=== PATIENT | female | born 1955 | race Caucasian/White ===

== ENCOUNTER 2021-02-24 05:36 | Inpatient (IN) | payer OTHER ==
[~2021-02-24] VITALS: Ht 167.6 cm; Wt 69.8 kg
[2021-02-24] VITALS (10 sets, daily range): BP systolic 111–152; BP diastolic 56–85
--- NOTE | ~2021-02-24 | HC ---
[facility] [place] [address] CONSULTATION Name: RALEIGH GAINES Room #: 207-P ADM IN .R.#: [id number] Admission: 02/24/21 Attend Phys: Omari Sanders MD Discharge: Date of : 57 Report #: [id number] THIS REPORT FOR: cc: FAM - Family physician unknown FAM - Family physician unknown Juancarlos Rollins MD ~ DOC #: [id number] Juancarlos Rollins MD DATE OF SERVICE: 02/26/2021 HISTORY OF PRESENT ILLNESS: The patient is a 65-year-old white female with complaints of diffuse severe cramping in her legs and some shortness of breath. Has been more sedentary as of late. Workup revealed pulmonary embolism, moderate bilateral with bilateral lower extremity DVT worse involving the right lower extremity. She also has an elevated troponin and acute renal insufficiency. Cardiology has been following as well as pulmonary medicine. She has been anticoagulated. We are seeing her in rehabilitation medicine consultation. PAST MEDICAL HISTORY: Hypertension, restless leg syndrome, elevated LFTs. She is noted to see a neurologist for problems ambulating, although that has not happened to this point. She has an old right ankle fracture in the . MEDICATIONS: Please see the full medication listing. ALLERGIES: ASPIRIN. HABITS: Prior history of tobacco abuse, 1 pack per day for 45 years, quit and is no longer smoking. SOCIAL HISTORY: Lives in an apartment with her spouse who is modified independent without gait aids in the apartment, although she utilize a front-wheeled walker when out in the community. Second Floor elevator. She notes that her could be of assistance if needed. REVIEW OF SYSTEMS: Did not offer any current complaints of chest pain or shortness of breath at rest. She does continue to have significant lower extremity cramping, although she notes it is somewhat improved from before. PHYSICAL EXAMINATION: GENERAL: A 65-year-old white female in no obvious distress. VITAL SIGNS: Last recorded temperature 36.8, pulse 92, respirations 18, blood pressure is 120/69. NEUROLOGIC: The patient is alert. She is in no distress. She is on nasal prong O2 currently 2 liters. She can follow basic 1-step commands. Functional range of motion of both upper extremities with strength grade 4-/5. DTRs are [address] [address] CONSULTATION Name: RALEIGH GAINES Robert Room #: [address] [place] [address] IN .R.#: [id number] Admission: 02/24/21 Attend Phys: Omari Sanders MD Discharge: Date of : 57 Report #: [id number] trace to 1. Lower extremities, no focal calf swelling. Functional range of motion, I had to move bilateral lower extremities for testing, but she had the onset of significant left posterior buttocks and thigh pain with cramping. This gradually ease. Strength is probably a grade 4- to 3+, but again it was somewhat difficult to test with the cramping. Tone appeared to be intact. She has been min assist; sit to stand and was min assist to take some side steps to the right with a front-wheeled walker. Bed mobility is min assist. IMPRESSION: A 65-year-old white female with the following problem list: 1. Generalized weakness and debilitation. 2. Moderate bilateral pulmonary emboli with bilateral deep venous thrombosis. 3. Elevated troponin with Cardiology involved, thought to likely be heart strain from pulmonary embolism per note. 4. History of acute renal insufficiency, improving. 5. Significant painful lower extremity spasms. She is on cyclobenzaprine and Requip. She is also being supplemented with magnesium IV. PLAN: Insurance will be checked regarding a short acute inpatient rehabilitation stay. She had a rather sedentary lifestyle before now complicated with the moderate bilateral pulmonary embolism and lower extremity DVT bilaterally with the other multiple medical comorbidities as noted above. Inpatient rehabilitation robledo here in the hospital would allow good continuity of care for the consulting physicians to continue to follow along rehabilitation as we gradually improve her strength, endurance, independence to transition her back to the home setting post-rehabilitation. Thank you for asking us to assist in this patient's care. MD SEBASTIAN HernandezS By: 1031 00 Juancarlos Rollins MD /nt
--- NOTE | ~2021-02-24 | EMS ---
[address] [address] EMS Patient Care Report Name: RALEIGH GAINES Room #: REG MYESHA Fournier#: [id number] Admission: 02/24/21 Attend Phys: Discharge: Date of : 57 Report #: [id number] THIS REPORT FOR: //name// Report Transmitted: 02/24/2021 05:31 EMS Care Summary [place], [place]/[facility] Incident [id number] @ 02/24/2021 05:01 Incident Location [address] Patient RALEIGH GAINES Female, 65 Years 1955 Patient Address [address] [place] [address] Patient History Hypertension (HTN),Restless Leg Syndrome,Chronic Kidney Disease, Patient Allergies Aspirin, Patient Medications Ropinirole, Amlodipine, Nortriptyline, Chief Complaint CRAMPING Disposition Transported No Lights/[place] Dispatch Reason Sick Person Transported To [facility] Narrative RESPONDED TO SICK AT APARTMENT. UPON ARRIVAL PT FOUND SITTING ON FLOOR ALERT AND ORIENTED. PT REPORTS HAVING LOWER ABDOMINAL CRAMPING FOR THE LAST 3 DAYS AND CRAMPING IN HER LEGS WELL. PT HAS PITTING EDEMA IN BOTH LOWER LEGS INTO [address] [address] EMS Patient Care Report Name: RALEIGH GAINES Room #: REG MYESHA Fournier#: [id number] Admission: 02/24/21 Attend Phys: Discharge: Date of : 57 Report #: [id number] FEET. SHE REPORTS SHE WAS SUPPOSED TO SEE HER KIDNEY DOCTOR A YEAR AGO BUT COVID STOPPED THAT FROM HAPPENING. PT ASSISTED TO STAND AND PIVOT TO COT AND SEATBELTS APPLIED. PT VITALS AND 3 LEAD OBTAINED. PT TRANSPORTED TO [facility] WITH NO CHANGES. PT SCOOTED TO BED AND HANDRAILS UP. REPORT GIVEN TO NURSE. Initial Vitals @05:21P: 101,CO: 2,SpO2: 91, @05:28P: 105,R: 14,BP: 120/83,CO: 5,SpO2: 89, @05:26P: 146,CO: 3,SpO2: 89, @05:20P: 102,R: 18,BP: 166/80,CO: 1,SpO2: 91, @05:27P: 103,R: 16,Pain: 10/10,GCS: 15,SpO2: 88, Assessments @05:24MENTAL:Person Oriented,Time Oriented,Event Oriented,Place Oriented,SKIN:HEENT:Head/Face: No Abnormalities,Eyes: No Abnormalities,Neck/Airway: No Abnormalities,LUNG SOUNDS:General: No Abnormalities,Left Upper: No Abnormalities,Right Upper: No Abnormalities,Left Lower: No Abnormalities,Right Lower: No Abnormalities,ABDOMEN:General: No Abnormalities,Left Upper: No Abnormalities,Right Upper: No Abnormalities,Left Lower: No Abnormalities,Right Lower: No Abnormalities,PELVIS//GI:No Abnormalities,EXTREMITIES:Right Arm: Weakness,Left Arm: Weakness,Right Leg: Edema,Left Leg: Edema,Capillary Refill: Left Upper: < 2 Sec,Right Leg: Weakness,Left Leg: Weakness,PULSE:Radial: 2+ Normal,NEURO:No Abnormalities, Impression Abdominal Pain Procedures @05:32ALS AssessmentResponse: UnchangedSucceeded@05:323-Lead ECGResponse: UnchangedSucceeded Timeline 04:59,Call Received 04:59,Dispatch Notified 05:01,Dispatched 05:02,En Route 05:08,On Scene 05:12,At Patient 05:20,BP: 166/80 M,PULSE: 102,RR: 18 R,SPO2: 91 Ox,ETCO2: ,BG: ,PAIN: ,GCS: , 05:21,BP: / M,PULSE: 101,RR: R,SPO2: 91 Ox,ETCO2: ,BG: ,PAIN: ,GCS: , 05:22,Depart Scene 05:26,BP: / M,PULSE: 146,RR: R,SPO2: 89 Ox,ETCO2: ,BG: ,PAIN: ,GCS: , 05:27,BP: / M,PULSE: 103,RR: 16 R,SPO2: 88 Ox,ETCO2: ,BG: ,PAIN: 10,GCS: 15, 05:28,BP: 120/83 M,PULSE: 105,RR: 14 R,SPO2: 89 Ox,ETCO2: ,BG: ,PAIN: ,GCS: , 05:32,ALS Assessment,Response: UnchangedSucceeded, 05:32,3-Lead ECG,Response: UnchangedSucceeded, [facility] [address] [place] [address] EMS Patient Care Report Name: RALEIGH GAINES Room #: REG MYESHA Fournier#: [id number] Admission: 02/24/21 Attend Phys: Discharge: Date of : 57 Report #: [id number] 05:33,At Destination 05:48,Call Closed Disclaimer v1.1 Copyright 2020 [employer] This EMS Care Summary contains data elements from the applicable legal record (which may be displayed differently). It is designed to provide pertinent information for the following purposes: continuity of care, clinical quality, and state data reporting. The complete legal record is available to ED staff and administrators of the receiving hospital in [employer] Patient Tracker. All data is provided "as is."
[2021-02-24 06:23] LABS: BASOPHILS 0.5 % (0.0-2.0); EOSINOPHILS 1.5 % (0.0-3.0); HEMATOCRIT 34.7 % (37.0-47.0); LYMPHOCYTES 8.4 % (24.0-44.0); MCH 25.9 pg (26.0-34.0); MCHC 31.8 g/dL (28.0-37.0); MCV 81.5 fL (80.0-100.0); MONOCYTES 7.4 % (1.0-8.0); PLATELET COUNT 359 thou/uL (150-400); POLYS 82.2 % (36.0-66.0); RBC 4.26 mil/uL (4.20-5.00); RDW 14.7 % (10.5-14.5); WBC 13.3 thou/uL (4.0-11.0)
[2021-02-24 06:29] LABS: CALCIUM 9.3 mg/dL (8.5-10.1); CREATININE 1.4 mg/dL (0.6-1.0); POTASSIUM 4.1 mmol/L (3.5-5.1)
[2021-02-24 06:39] LABS: ALBUMIN 3.1 g/dL (3.4-5.0); MAGNESIUM 2.1 mg/dL (1.8-2.4); TOTAL BILIRUBIN 0.6 mg/dL (0.2-1.0); TOTAL PROTEIN 8.3 g/dL (6.4-8.2)
[2021-02-24 06:42] LABS: TROPONIN-I 0.98 ng/mL (<0.06)
[2021-02-24 07:27] LABS: URINE BILIRUBIN NEGATIVE (Negative); URINE BLOOD TRACE (Negative); URINE CLARITY CLOUDY; URINE COLOR YELLOW; URINE GLUCOSE-RANDOM* NEGATIVE (Negative); URINE KETONES TRACE (Negative); URINE LEUKOCYTES-REFLEX TRACE (Negative); URINE NITRITE-REFLEX NEGATIVE (Negative); URINE PROTEIN (DIPSTICK) TRACE (Negative); URINE UROBILINOGEN 0.2 E.U./dl (0.2-1.0)
[2021-02-24 08:44] LABS: INR 1.12; PROTIME 12.1 Seconds (10.5-12.1)
--- NOTE | 2021-02-24 15:44 | 2DMMODE ---
[facility] [place] [address] 2 D/M-MODE ECHOCARDIOGRAM Name: RALEIGH GAINES Room #: 207-P ADM IN M.R.#: [id number] Admission: 02/24/21 Attend Phys: Omari Sanders MD Discharge: Date of : 57 Report #: [id number] THIS REPORT FOR: cc: FAM - Family physician unknown FAM - Family physician unknown Merlin Garcia MD ~ APPROVED REPORT Study performed: 02/24/2021 12:26:18 EXAM: Comprehensive 2D, Doppler, and color-flow Echocardiogram Patient Location: Bedside Room #: 207 Status: on-call BSA: 1.77 HR: 94 bpm BP: 129/71 mmHg Rhythm: NSR Other Information Study Quality: Adequate Technically limited study due to inability to position patient. Risk Factors: Cardiac Risk Factors: HTN Indications Pulmonary Embolism Dyspnea Elevated Troponin 2D Dimensions IVSd: 10.43 (7-11mm) LVOT Diam: 21.00 (18-24mm) LVDd: 39.25 mm PWd: 12.44 (7-11mm) Ascending Ao: 35.31 (22-36mm) LVDs: 25.39 (25-40mm) Aortic Root: 27.51 mm Volumes Left Atrial Volume (Systole) Single Plane 4CH: 15.78 mL Single Plane 2CH: 21.72 mL LA ESV Index: 14.00 mL/m2 [facility] [place] [address] 2 D/M-MODE ECHOCARDIOGRAM Name: RALEIGH GAINES Room #: 207-[facility] IN ..#: [id number] Admission: 02/24/21 Attend Phys: Omari Sanders, Discharge: Date of : 57 Report #: [id number] Aortic Valve AoV Peak Sean.: 1.10 m/s AO Peak Gr.: 4.84 mmHg LVOT Max P.27 mmHg LVOT Max V: 0.75 m/s KAELYN Vmax: 2.42 cm2 Mitral Valve E/A Ratio: 0.7 MV Decel. Time: 176.69 ms MV E Max Sean.: 0.86 m/s MV A Sean.: 1.24 m/s MV PHT: 51.24 ms IVRT: 51.90 ms TDI E/Lateral E': 14.33 E/Medial E': 14.33 Medial E' Sean.: 0.06 m/s Lateral E' Sean.: 0.06 m/s Pulmonary Valve PV Peak Sean.: 0.81 m/s PV Peak Gr.: 2.63 mmHg Pulmonary Vein P Vein S: 0.39 m/s P Vein A: 0.34 m/s P Vein D: 0.26 m/s P Vein A Dur.: 90.0 msec P Vein S/D Ratio: 1.50 Tricuspid Valve TR Peak Sean.: 3.59 m/s RAP Estimate: 7.00 mmHg TR Peak Gr.: 51.57 mmHg PA Pressure: 59.00 mmHg Left Ventricle The left ventricle is normal size. There is normal LV segmental wall motion. There is normal left ventricular wall thickness. Left ventricular systolic function is normal. The left ventricular ejection fraction is within the normal range. LVEF is 55-60%. Mild diastolic dysfunction is present (impaired relaxation pattern). Right Ventricle Right ventricle is mildly dilated. Right ventricle is hypokinetic. Atria The left atrium size is normal. Right atrium is mildly [facility] [address] [place] [address] 2 D/M-MODE ECHOCARDIOGRAM Name: RALEIGH GAINES Room #: [address] [place] [address] IN ..#: [id number] Admission: 02/24/21 Attend Phys: Omari Sanders, Discharge: Date of : 57 Report #: [id number] dilated. Aortic Valve The aortic valve is normal in structure. No aortic regurgitation is present. There is no aortic valvular stenosis. Mitral Valve The mitral valve is normal in structure. Mild mitral regurgitation. No evidence of mitral valve stenosis. Tricuspid Valve The tricuspid valve is normal in structure. Mild to moderate tricuspid regurgitation. Pulmonary artery pressure is 59 mmHg. Pulmonic Valve The pulmonary valve is normal in structure. Trace pulmonic regurgitation. Great Vessels The aortic root is normal in size. The ascending aorta is normal in size. IVC is normal in size and collapses >50% with inspiration. Pericardium Trace pericardial effusion. <Conclusion> The left ventricle is normal size. There is normal left ventricular wall thickness. LVEF is 55-60%. Right ventricle is mildly dilated. Right ventricle is hypokinetic. Right atrium is mildly dilated. The aortic valve is normal in structure. The mitral valve is normal in structure. Mild mitral regurgitation. The tricuspid valve is normal in structure. Mild to moderate tricuspid regurgitation. Pulmonary artery pressure is 59 mmHg. The pulmonary valve is normal in structure. Trace pulmonic regurgitation. [facility] [address] [place] [address] 2 D/M-MODE ECHOCARDIOGRAM Name: RALEIGH GAINES Room #: 207-P [facility] IN ..#: [id number] Admission: 02/24/21 Attend Phys: Omari Sanders, Discharge: Date of : 57 Report #: [id number] The aortic root is normal in size. Trace pericardial effusion. <ELECTRONICALLY SIGNED> By: Merlin Garcia MD 02/24/21 1544 [id number] 1544 Merlin Garcia MD /INF
--- NOTE | 2021-02-24 18:38 | NUR ---
PT CARE ASSUMED AT 0830. ASSESSMENTS CHARTED. MEDICATIONS CHARTED. LFA IV. LAC IV. SINUS RHYTHM. PT NEEDS TO USE BEDPAN, CANNOT MOVE WELL ENOUGH TO USE BSC. PT HAS PAIN IN HER LT THIGH, FREQUENT CRAMPS. HEPARIN GTT AT 14.99 U/KG/HR. 10.2 ML/HR. LAST APTT 37.6.
[2021-02-25 04:22] VITALS: BP 127/85
[2021-02-25 06:09] LABS: HEMATOCRIT 32.1 % (37.0-47.0); HEMOGLOBIN 10.4 gm/dL (12.0-15.0); MCH 26.2 pg (26.0-34.0); MCHC 32.4 g/dL (28.0-37.0); MCV 81.1 fL (80.0-100.0); RBC 3.97 mil/uL (4.20-5.00); RDW 14.8 % (10.5-14.5); WBC 11.5 thou/uL (4.0-11.0)
[2021-02-25 06:27] LABS: CALCIUM 9.1 mg/dL (8.5-10.1); CREATININE 1.1 mg/dL (0.6-1.0); MAGNESIUM 1.9 mg/dL (1.8-2.4)
[2021-02-25 06:32] LABS: TROPONIN-I 0.97 ng/mL (<0.06)
--- NOTE | 2021-02-25 07:22 | EKG ---
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1955 Requested By: Cresencio Carpenter Order Number: [id number] MD: Sunday Corrales Measurements Intervals [place] Rate: 97 P: 70 ID: [id number] QRS: -48 QRSD: 112 T: 75 QT: 356 QTc: 452 Interpretive Statements Sinus rhythm Right atrial enlargement Artifact in lead(s) I,II,aVR,aVL,aVF,V1,V2,V6 No previous ECG available for comparison Electronically Signed On 02-25-2021 7:22:39 CDT by Sunday Corrales [email or web address] <ELECTRONICALLY SIGNED> By: Sunday Corrales MD, [facility] 02/25/21721 9 9 Sunday Corrales MD, [facility] /EPI
--- NOTE | 2021-02-25 07:23 | EKG ---
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1955 Requested By: Omari Sanders Order Number: [id number] MD: Sunday Corrales Measurements Intervals [place] Rate: 99 P: 75 AK: 212 QRS: -39 QRSD: 91 T: 60 QT: 356 QTc: 457 Interpretive Statements Sinus rhythm Borderline prolonged AK interval Biatrial enlargement Left axis deviation Low voltage, extremity leads Abnormal inferior Q waves Consider anterior infarct Compared to ECG 02/24/2021 06:30:23 Left-axis deviation now present Low QRS voltage now present Inferior Q waves now present Electronically Signed On 02-25-2021 7:23:00 CDT by Sunday Corrales [email or web address] <ELECTRONICALLY SIGNED> By: Sunday Corrales MD, [facility] 02/25/21 0723 0743 0743 Sunday Corrales MD, [facility] /EPI
--- NOTE | 2021-02-25 07:31 | NUR ---
PAIN WELL CONTROLLED WITH TYLENOL,STILL HAVE BAD CRAMPS WITH MOVEMENT.ON HEPARIN GTT TITRATED PER PROTOCOL.BM X 1 THIS MORNING.MONITOR SHOWS SR.POC CONTINUED.
[2021-02-25 07:48] VITALS: BP 142/81
[2021-02-25 11:41] VITALS: BP 130/65
[2021-02-25 15:14] VITALS: BP 129/64
--- NOTE | 2021-02-25 16:18 | NUR ---
DR. FARFAN NOTIFIED OF PATIENT HAVING SEVERE MUSCLE SPAMS IN THE LEGS, MAKING AMBULATION DIFFICULT. RECIEVED ORDERS FOR FLEXERIL 5MG TID PRN.
[2021-02-25 21:08] VITALS: BP 131/81
[2021-02-26 03:54] VITALS: BP 134/78
[2021-02-26 04:29] LABS: HEMATOCRIT 28.9 % (37.0-47.0); HEMOGLOBIN 9.6 gm/dL (12.0-15.0); MCH 26.9 pg (26.0-34.0); MCHC 33.3 g/dL (28.0-37.0); MCV 80.8 fL (80.0-100.0); RBC 3.57 mil/uL (4.20-5.00); RDW 14.7 % (10.5-14.5); WBC 10.1 thou/uL (4.0-11.0)
[2021-02-26 04:44] LABS: CALCIUM 8.6 mg/dL (8.5-10.1); CREATININE 0.9 mg/dL (0.6-1.0); MAGNESIUM 1.6 mg/dL (1.8-2.4); POTASSIUM 3.5 mmol/L (3.5-5.1)
--- NOTE | 2021-02-26 06:30 | NUR ---
PAIN WELL CONTROLLED THIS SHIFT.ON HEPARIN GTT TITRATED PER PROTOCOL.MAG LEVEL IS 1.6 THIS MORNING.2 GM MAG IS GIVEN.MONITOR SHOWS SR.POC CONTINUED.
[2021-02-26 07:37] VITALS: BP 142/81
[2021-02-26 11:20] VITALS: BP 120/69
[2021-02-26 15:23] VITALS: BP 136/74
--- NOTE | 2021-02-26 15:34 | NUR ---
met with patient she resides at home with spouse. They reside in independent apt. Patient uses a walker in the home. she has elevator to apt. She reports no insurance. she [place] appro[place] but spenddown was too much approx $800. Patient reports spouse is retired. Therapy evals in process. 5N eval in process. casemgt following.
[2021-02-26 19:21] VITALS: BP 150/85
[2021-02-26 22:36] VITALS: BP 150/85
[2021-02-27 04:13] VITALS: BP 140/69
[2021-02-27 05:25] LABS: HEMATOCRIT 30.2 % (37.0-47.0); MCH 26.6 pg (26.0-34.0); MCV 80.4 fL (80.0-100.0); RBC 3.75 mil/uL (4.20-5.00); RDW 14.4 % (10.5-14.5); WBC 9.7 thou/uL (4.0-11.0)
[2021-02-27 05:33] LABS: CALCIUM 8.7 mg/dL (8.5-10.1); CREATININE 0.9 mg/dL (0.6-1.0); MAGNESIUM 1.6 mg/dL (1.8-2.4); POTASSIUM 3.5 mmol/L (3.5-5.1)
--- NOTE | 2021-02-27 05:57 | NUR ---
assumed pt care at 1900, pt is awake, alert and oriented, sr on tele, assessments as charted, pain meds given as per mar with relieve, other meds given as per mar, no needs at this time, will continue to monitor, will pass report
[2021-02-27 07:30] VITALS: BP 125/66
--- NOTE | 2021-02-27 08:31 | NUR ---
ASSUMED PT CARE AT 0700. 0830 ASSESSMENT PERFORMED CHARTED. VSS. PT STATES HER LEG CRAMPS ARE BETTER TODAY BUT HAS INTERMITTEN PAIN AND SPASMS. WILL CONTINUE TO MONITOR AND FOLLOW POC.
[2021-02-27 11:00] VITALS: BP 127/74
[2021-02-27] MEDS ORDERED: NORTRIPTYLINE H50 M3 PO (13:14)
[2021-02-27] MEDS ORDERED: TYLENOL325 MG PO (13:14)
[2021-02-27] MEDS ORDERED: ELIQUIS5 MG PO (13:14)
[2021-02-27] MEDS ORDERED: MIRALAX17 GM PO (13:14)
[2021-02-27] MEDS ORDERED: ROPINIROLE HCL2 MG PO (13:14)
[2021-02-27] MEDS ORDERED: FLEXERIL PO (13:14)
[2021-02-27] MEDS ORDERED: AMLODIPINE BESY10 MG PO (13:14)
--- NOTE | 2021-02-27 13:30 | NUR ---
PATIENT EVALED BY 5n AND ACCEPTED FOR TRANSFER. PATIENT IN AGREEMENT WITH PLAN
== END 2021-02-27 16:02 | DRG 280 ==
LOC: ER 05:36 → 2N 07:24 → EROBS 07:24 → 2N 08:51
PROVIDERS: Emergency Medicine; ADMIT Internal Medicine; ATTEND Internal Medicine
DX: I21.4 Non-ST elevation (NSTEMI) myocardial infarction (principal); I26.94 Multiple subsegmental thrombotic pulmonary emboli without acute cor pulmonale; I31.3 Pericardial effusion (noninflammatory); N17.9 Acute kidney failure, unspecified; I82.431 Acute embolism and thrombosis of right popliteal vein; I82.441 Acute embolism and thrombosis of right tibial vein; I82.411 Acute embolism and thrombosis of right femoral vein; I82.451 Acute embolism and thrombosis of right peroneal vein; I10 Essential (primary) hypertension; G25.81 Restless legs syndrome; R53.81 Other malaise; D72.829 Elevated white blood cell count, unspecified; F32.9 Major depressive disorder, single episode, unspecified; R27.0 Ataxia, unspecified; Z20.822 Contact with and (suspected) exposure to COVID-19; F41.9 Anxiety disorder, unspecified; Z88.6 Allergy status to analgesic agent; Z87.891 Personal history of nicotine dependence
CPT/HCPCS: 10081; 10194

== ENCOUNTER 2021-02-27 14:09 | Inpatient (IN) | payer OTHER ==
[~2021-02-27] VITALS: Ht 167.6 cm; Wt 60.5 kg
[~2021-02-27 14:09] MED LIST: AMLODIPINE BESY10 MG PO; ELIQUIS5 MG PO; FLEXERIL PO; MIRALAX17 GM PO; NORTRIPTYLINE H50 M3 PO; ROPINIROLE HCL2 MG PO; TYLENOL325 MG PO
--- NOTE | 2021-02-27 16:00 | NUR ---
NEW ADMISSION FROM CCU, CAME IN VIA BED, BROUGHT IN BY HOSP STAFF. ALERT AND ORIENTATED X 3. DENIES ANY PAIN BUT DOES REPORT SPASM IN HER L HAMSTRING AND WAS GIVEN FLEXERIL. PT UNABLE TO STRAIGHTEN L LEG DUE TO SPASM PAIN. NO SKIN ISSUES. EDEMA NOTED IN BLE MORE IN THE L>R. ON 2L 02. HAD A BM ON 02/26 PER REPORT AND PT. PT SEEMS ANXIOUX AND REPORTS MORE SPASM WITH MOVEMENT. HAS COUPLE OF PERIPHERAL IV ON THE L ARM. ASSESSMENT COMPLETED. ROOM ORIENTATION GIVEN TO PT. CONSENT SIGNED. VSS. ALL QUESTIONS AND CONCERNS ADDRESSED.
--- NOTE | 2021-02-27 16:35 | NUR ---
Chart rehab, new to acute rehab 5N today. CM tried to visit with her, unable to related to bedside nurse in room with pt. Noted that she lives at home in apartment with her . No stairs that she must do, there is elevator up to their apartment. Has walker. Need to check and see if she has PCP, hh or rehab in the past. Cm called number listed on chart x 2 for and number out of service. Will cont. following as needed for dc needs.
[2021-02-27 19:30] VITALS: BP 135/59
--- NOTE | 2021-02-28 00:07 | NUR ---
PT ASSESSMENT COMPLETED AND VSS. MEDS GIVEN ORDERED AND WELL TOLERATED. FALL PRECAUTIONS IN PLACE. PT HAS SEVERE PAIN WITH REPOSITION AND STATES THAT IT WAS THE SAME FOR HER DOWNSTAIRS. CONTACTED SHAYLA RIDLEY AND GAVE ONETIME DOSE OF FENTALYL - HELPFUL. INC OF URINE. SLEEPING WELL AT THIS TIME. WILL CONTINUE TO MONITOR FREQUENTLY.
[2021-02-28 05:06] LABS: HEMATOCRIT 30.6 % (37.0-47.0); HEMOGLOBIN 10.1 gm/dL (12.0-15.0); MCH 26.5 pg (26.0-34.0); MCHC 33.1 g/dL (28.0-37.0); MCV 80.1 fL (80.0-100.0); RBC 3.82 mil/uL (4.20-5.00); RDW 14.7 % (10.5-14.5); WBC 10.5 thou/uL (4.0-11.0)
[2021-02-28 05:18] LABS: CALCIUM 8.7 mg/dL (8.5-10.1); CREATININE 0.9 mg/dL (0.6-1.0); MAGNESIUM 1.4 mg/dL (1.8-2.4); POTASSIUM 3.3 mmol/L (3.5-5.1)
--- NOTE | 2021-02-28 08:00 | NUR ---
Pt getting ready to have breakfast, cm intro to dcp, and weekly team meetings. Notes she wearing o2 per nc, and did not have any home o2 prior to hosp. will need to see if oxygen can be weaned if not she will need home o2 set up. PCP is at [facility], Dr cho. no hh or rehab in the past. Will cont following as needed for dc needs.
[2021-02-28 08:19] VITALS: BP 135/59
--- NOTE | 2021-02-28 12:41 | NUR ---
ASSUMED CARE AT 0700. DID NOT SLEEP WELL LAST NIGHT DUE TO PAIN AND SPASM. WAS GIVEN IV FENTANYL WITH LITTLE RELIEF. THIS MORNING SHE WAS GIVEN TYLENOL AND TRAMADOL FOR A PAIN OF 10/10 IN HER L POSTERIOR THIGH. SHE WAS ABLE TO GET UP WITH PHY THERAPY BUT TOOK A LONG TIME TO GET HER UP SITTING DUE TO PAIN. ALSO GIVEN 2 BAGS OF MAGNESIUM AND ROBAXIN. PT HAS BEEN UP IN THE WC FOR OVER 2 HOURS.
--- NOTE | 2021-02-28 14:17 | NUR ---
Nutrition: pt admitted with PE with bilateral DVT, debility to rehab unit. Consult received stating poor intake. pt with 5-25% of meals recorded past 48 hrs. States "I will eat when I get home" Discussed current importance of good nutrition/protein for strength as muscle weakness noted. Encouraged use of alternative menu. On carb controlled diet with no hx DM, rec liberalize to regular. Current weight of 103# error. pt reports initial weight of 153# is accurate and weights have been stable. Will trial ensure daily otherwise consider low nutrition risk.
--- NOTE | 2021-02-28 16:45 | NUR ---
ADM TRAMADOL 50MG PO FOR PAIN TO LEFT LEG OF 10 ON 1-10 SCALE. PT VERY ANXIOUS ALSO ADM LORAZEPAM 1MG PO FOR ANXIEY. PT UNABLE TO GET LEFT LEG UP TO FOOT REST ON W/C. PT BACK TO BED X1 ASSIST. PT DID VERY WELL TRANFERING SELF TO BED FROM W/C.
[2021-02-28 19:27] VITALS: BP 115/73
--- NOTE | 2021-03-01 03:01 | NUR ---
ROBAXIN AND REQUIP GIVEN AT HS PER SCHEDULE. HAS BEEN OFFERED TYLENOL AND TRAMADOL FOR PAIN, BUT SHE HAS DECLINED, DESCRIBES HER PAIN LEG SPASMS IN THE BACK OF HER THIGH WHEN SHE STANDS USING WALKER, HAS USED BSC FOR VOID TO AVOID WALKING MUCH FURTHER ON IT. O2 2L PNC
[2021-03-01 07:44] VITALS: BP 119/67
--- NOTE | 2021-03-01 08:59 | NUR ---
ASSUMED CARE AT 0700. PATIENT IS ALERT AND ORIENTED X4. PATIENT CARRION'S, BUCKLE SORTER ARE EQUAL. C/O PAIN/CRAMPING IN HER LOWER EXTREMITIES. LUNGS ARE CLEAR. 02 AT 2L PER N/C. ABD IS SOFT WITH BSX4. UP TO THE BATHROOM TO VOID ROBBIE COLORED URINE. PATIENT HAS S.L. IN HER LEFT F.A. UP IN W/C FOR BREAKFAST. FALL AND SAFETY PROTOCOLS IN PLACE. C/O PAIN AND CRAMPING IN HER LOWER EXTREMITES. MEDICATED WITH SCED PAIN MED AND MED FOR MUSCLE SPASMS. PATIENT CONTINUES TO PROGRESS SLOWLY TOWARDS D/C GOALS. WILL CONTINUE TO MONITER.
--- NOTE | 2021-03-01 13:38 | NUR ---
Chart review. Cont. dcp as needed.
[2021-03-01 20:32] VITALS: BP 131/87
--- NOTE | 2021-03-02 01:26 | NUR ---
UP TO [facility] [place] GA[place] BELT, WALKER, AND ONE PERSON ASSIST FOR VOID AND LOOSE STOOL. BECAUSE OF LOOSE STOOL SKIPPED EVENING DOSE OF MIRALAX, STATES WILL PROBABLY TAKE IN THE MORNING, NOT SURE ABOUT TAKING LACTULOSE AGAIN. BACLOFEN GIVEN SCHEDULED, 2 MG ZANAFLEX GIVEN PRN AT HS TO MINIMIMIZE CRAMPING AND SPASMS TO POSTERIOR THIGHS. TURNING SELF IN BED, WITH PILLOW UNDER HEELS AND ATTEMPTS TO STRAIGHTEN LEGS/EXTEND KNEES
[2021-03-02 05:25] LABS: HEMATOCRIT 31.6 % (37.0-47.0); HEMOGLOBIN 10.6 gm/dL (12.0-15.0); MCH 26.5 pg (26.0-34.0); MCHC 33.4 g/dL (28.0-37.0); MCV 79.3 fL (80.0-100.0); RBC 3.99 mil/uL (4.20-5.00); RDW 14.8 % (10.5-14.5); WBC 8.8 thou/uL (4.0-11.0)
[2021-03-02 05:43] LABS: ALBUMIN 2.6 g/dL (3.4-5.0); CALCIUM 9.1 mg/dL (8.5-10.1); CREATININE 0.9 mg/dL (0.6-1.0); MAGNESIUM 1.7 mg/dL (1.8-2.4); POTASSIUM 4.6 mmol/L (3.5-5.1); TOTAL BILIRUBIN 0.3 mg/dL (0.2-1.0); TOTAL PROTEIN 7.3 g/dL (6.4-8.2)
--- NOTE | 2021-03-02 07:52 | NUR ---
ASSUMED CARE AT 0700. PATIENT IS ALERT AND ORIENTED X4. PATIENT CARRION'S, WITH PAIN IN HER LOWER EXTREMITIES. PATIENT IS UP WITH ASSIST OF 1 MAX ASSIST TO THE BSC. LUNGS ARE CLEAR AND DEMINISHED. ABD IS SOFT WITH BSX4. FALL AND SAFETY PROTOCOLS IN PLACE. C/O LEG PAIN . MEDICATED WITH PRN PAIN MED. CONTINUES TO PROGRESS SLOWLY TOWARDS D/C GOALS. WILL CONTINUE TO MONITER.
[2021-03-02 08:00] VITALS: BP 146/62
--- NOTE | 2021-03-02 11:31 | NUR ---
PATIENT DOING EXERCISES WITH S.T. AND THERAPIST ASKED THIS COTTON TIPPER TO COME AND EVALUATE PATIENT BECAUSE SHE IS NOT RESPONDING TO QUESTIONS APPROPRIATELY. THE PATIENT NEW WHO I WAS, WHERE WE WERE, THE DATE , MONTH , YEAR. WHEN ASKED WHAT THE PICTURE WAS IN THE BOOK BEING USED BY THERAPY SHE STATED "ITS A PICTURE OF A BUS. " WHICH WAS CORRECT. PATIENT HAS NO SLURRED SPEECH, NO FACIAL DROOP, CREAM HAULER ARE EQUAL BILATERALLY. SHE DOES C/O SPASMS IN HER LEGS, BUT THIS IS NOT NEW. PATIENT MUSCLE RELAXANT ROBAXIN WAS D/C'D YESTERDAY AND SHE WAS STARTED ON BACLOFEN SCED, AND TIZANIDINE PRN . WILL CONTINUE TO MONITER.
--- NOTE | 2021-03-02 12:29 | NUR ---
PATIENT WAS NOT ABLE TO FULLY PARTICIPATE IN THERAPY THIS DATE DUE TO C/O PAIN WITH LEG AND BOTTOCK CRAMPS AND INABILITY TO FOCUS AND ATTEND TO TASK. BEHAVIORS WERE ODD WITH THE PATIENT SWAYING IN HER CHAIR WITH HER GAZE DIVERTED INTO SPACE. WHEN PROMPTED, SHE WAS ABLE TO ACHIEVE EYE CONTACT WITH THE THERAPIST FOR SHORT PERIODS OF TIME. SPEECH REMAINED CLEAR AND INTELLIGIBLE BUT COGNITIVE DEFICITS WERE SIGNIFICANTLY MORE IMPAIRED TODAY.
--- NOTE | 2021-03-02 12:44 | NUR ---
ASSUMED CARE OF PT, PT SITTING IN W/C CRYING IN PAIN AND PATTING LEFT LEG. ADM TRAMADOL 50MG PO FOR PAIN OF 8 ON 1-10 SCALE.
--- NOTE | 2021-03-02 13:02 | NUR ---
PT UP TO BSC X2 ASSIST. PT STATED PAIN FEELS LIKE A CRAMPING TO LEFT LEG. PT GUARDED AND SAYING OUCH, PT LEANING ON RT SIDE ON BSC TO KEEP PRESSURE OFF LEFT LEG. PT HAS SMELL OF UTI OR YEAST WHEN SITTING ON BSC.
--- NOTE | 2021-03-02 13:15 | NUR ---
ADM LORAZEPAM 1MG PO FOR ANXIETY. PT BACK TO W/C AFTER COMMODE, PT YELLING WITH ANY MOVEMENT OF LEFT LEG EVEN WHEN PANTS ARE PULLED UP. PT HAD SMALL SOFT BM.
--- NOTE | 2021-03-02 17:11 | NUR ---
PT RESTING AT THIS TIME IN BED. NOTICED PT MOVES LEGS IN BED BACK AND FORTH WITHOUT ANY PAIN NOTED.
--- NOTE | 2021-03-02 18:14 | NUR ---
PT STILL RESTING AT THIS TIME. DR. AVILA HERE TO SEE PT. THIS ELECTRICAL AND INSTRUMENT ENGINEER TOLD HIM ABOUT HER SODIUM LEVEL AND MAG, ALSO MENTIONED HER FOUL SMELL WHEN VOIDING.
[2021-03-02 19:06] VITALS: BP 158/70
--- NOTE | 2021-03-02 19:27 | NUR ---
PT WAS INCON OF URINE DUE TO SLEEPING. CHANGED PT IN BED AND PT CRYING AT THIS TIME, ASKING IF SHE CAN TALK TO US INSTEAD OF CRYING. PT HAS PAIN TO LEFT LEG WITH TURNING.
[2021-03-02 21:30] VITALS: BP 136/62
--- NOTE | 2021-03-02 22:04 | NUR ---
PT LETHARGIC AT START OF SHIFT. YELLING OUT WHEN DAY SHIFT STAFF CHANGED HER BED FOR URINE INCONT. THEN WENT RIGHT BACK TO SLEEP. WHEN ATTEMPTING TO GIVE PT HS MEDS SHE WAS VERY SEDATED. WOKE UP WITH GAZED LOOK IN HER EYES AND DID RESPOND TO SOME QUESTIONS. KNEW SHE WAS IN THE HOSPITAL. SANDRA. PT UNABLE TO FOLLOW COMMANDS. BP 136/62, HR 98, 02 SAT 94% ON 3L. KINGSLEY CUNNINGHAM SUPRVISOR IN TO SEE PT. WILMAN RIDLEY NP TO COME AND CHECK ON PT. HS MEDS HELD. PT CRYING AT TIMES AND RUBBING LEFT LEG IF IN PAIN. UNABLE TO VERBALIZE IF IN PAIN. BED ALARM ON FOR SAFETY. PT CHECKED ON HOURLY ROUNDS. APPEARS TO BE SLEEPING AT THIS TIME. WILL CONTINUE TO MONITOR.
[2021-03-02 23:48] VITALS: BP 151/85
[2021-03-03 04:13] VITALS: BP 156/83
--- NOTE | 2021-03-03 06:20 | NUR ---
ATTEMPTED STRAIGHT CATH X 2 FOR U/A WITHOUT SUCCESS. PT HAD BEEN INCONT LARGE AMT OF URINE JUST PRIOR TO ATTEMPT. WILL REPORT TO DAY NURSE.
[2021-03-03 07:15] VITALS: BP 127/67
--- NOTE | 2021-03-03 10:13 | NUR ---
ASSUMED CARE AT 0700. PATIENT IS ALERT AND ORIENTED X1 TO PERSON. PATIENT CARRION'S AND HAS SPASMS AND PAIN IN HER LOWER EXTREMITIES. LUNGS ARE DEMINISHED. CONTINUES ON 02 AT 3L PER N/C. ABD IS SOFT WITH BSX4. PATIENT GIVEN MIRALAX AND LACTULOSE. FALL AND SAFETY PROTOCOLS IN PLACE. C/O PAIN IN HER LOWER EXTREMITIES. MEDICATED WITH PRN PAIN MED. CONTINUES TO PROGRESS VERY SLOWLY WILL CONTINUE TO MONITER.
[2021-03-03 11:38] LABS: HEMATOCRIT 32.4 % (37.0-47.0); HEMOGLOBIN 10.8 gm/dL (12.0-15.0)
[2021-03-03 11:54] LABS: CREATININE 1.1 mg/dL (0.6-1.0); MAGNESIUM 1.7 mg/dL (1.8-2.4); POTASSIUM 4.3 mmol/L (3.5-5.1)
[2021-03-03 18:01] LABS: URINE BILIRUBIN NEGATIVE (Negative); URINE BLOOD NEGATIVE (Negative); URINE CLARITY CLEAR; URINE COLOR YELLOW; URINE GLUCOSE-RANDOM* NEGATIVE (Negative); URINE KETONES NEGATIVE (Negative); URINE LEUKOCYTES 1+ (Negative); URINE NITRITE NEGATIVE (Negative); URINE PROTEIN (DIPSTICK) NEGATIVE (Negative); URINE SPECIFIC GRAVITY 1.015 (1.005-1.035)
[2021-03-03 18:23] LABS: CASTS None Seen /LPF (None Seen); SQUAMOUS 4-10 Moderate /LPF (0-3)
[2021-03-03 18:24] LABS: AMORPHOUS URATES Moderate /LPF (None Seen); BACTERIA 1-9 Few /HPF (None Seen); URINE RBC None Seen /HPF (NONE SEEN); URINE WBC 1-5 Rare /HPF (NONE SEEN)
[2021-03-03 19:44] VITALS: BP 131/62
--- NOTE | 2021-03-04 03:00 | NUR ---
MERIDA TO DD, BED ALARM ON, TURNING SELF. MEDICATED FOR PAIN WITH TRAMADOL DESPITE PATIENT HAVING DIFFICULTY TELLING STAFF WHERE HER PAIN IS. HIPS FLEXED ALMOST 90 DEGREES TO KEEP KNEES UP TOWARDS HER UPPER BODY WHILE ON HER BACK OR TO HER SIDE SHE TURNS HERSELF. WAS SURE THAT SHE WAS GIVEN REQUIP AT HS. O2 2L PNC
[2021-03-04 05:47] LABS: ABSOLUTE NEUTROPHILS 7.3 thou/uL (1.4-8.2); BASOPHILS 0.2 % (0.0-2.0); EOSINOPHILS 1.9 % (0.0-3.0); HEMATOCRIT 35.1 % (37.0-47.0); HEMOGLOBIN 11.6 gm/dL (12.0-15.0); LYMPHOCYTES 11.9 % (24.0-44.0); MCH 26.2 pg (26.0-34.0); MCHC 32.9 g/dL (28.0-37.0); MCV 79.5 fL (80.0-100.0); MONOCYTES 9.3 % (1.0-8.0); POLYS 76.7 % (36.0-66.0); RBC 4.41 mil/uL (4.20-5.00); RDW 14.9 % (10.5-14.5); WBC 9.6 thou/uL (4.0-11.0)
[2021-03-04 05:51] LABS: PLATELET COUNT 647 thou/uL (150-400)
[2021-03-04 06:06] LABS: ALBUMIN 2.7 g/dL (3.4-5.0); ANION GAP 11 mmol/L (7-16); BUN 14 mg/dL (7-18); CALCIUM 9.4 mg/dL (8.5-10.1); CHLORIDE 96 mmol/L (98-107); CO2 27 mmol/L (21-32); GLUCOSE 109 mg/dL (74-106); MAGNESIUM 1.7 mg/dL (1.8-2.4); PHOSPHORUS 3.9 mg/dL (2.6-4.7); POTASSIUM 4.5 mmol/L (3.5-5.1); SGOT 19 U/L (15-37); SGPT 19 U/L (14-59); SODIUM 134 mmol/L (136-145); TOTAL BILIRUBIN 0.4 mg/dL (0.2-1.0); TOTAL PROTEIN 7.5 g/dL (6.4-8.2)
[2021-03-04 08:15] LABS: CHOLESTEROL 194 mg/dL (<200); HDL CHOLESTEROL 38 mg/dL (>40); LDL CHOLESTEROL 138 mg/dL (<100); TC:HDL 5.1 Ratio (Not establshd); TRIGLYCERIDE 93 mg/dL (<150); VLDL 19 mg/dL (<40)
--- NOTE | 2021-03-04 10:53 | NUR ---
ASSUMED CARE AT 0700. SLEPT OFF AND ON. REPORTED PAIN AND MUSCLE SPASM WORSEN WITH ACTIVITY OR MOVEMENT. HER LLE IS CONTRACTED AND NEEDS LOT OF CUING TO STRAIGHTEN THE LEG WITH THERAPY. MERIDA INTACT WITH ADEQ OUTPUT. ON 2L 02. APPETITE FAIR/POOR. PT ENC TO INC PO INTAKE. PHY THERAPY USED ICE PACK TO THE POST THIGH AND SEEMS TO BE HELPING WITH PAIN. PT NOTED TO HAVE SOME ORTHOSTATIC HYPOTENSION AND COMPLAINED OF FEELING DIZZY WITH STANDING AND NOTED BP WAS 92/55 WITH STANDING. BP SITTING WAS 122/61. DUE TO POOR APPETITE AND LOW PO INTAKE, CONCERNED ABOUT DEHYDRATION AND PT EDUCATED TO DRINK MORE.
[2021-03-04 16:41] LABS: URINE BILIRUBIN NEGATIVE (Negative); URINE BLOOD 2+ (Negative); URINE CLARITY CLEAR; URINE COLOR YELLOW; URINE GLUCOSE-RANDOM* NEGATIVE (Negative); URINE KETONES NEGATIVE (Negative); URINE NITRITE-REFLEX NEGATIVE (Negative); URINE PROTEIN (DIPSTICK) NEGATIVE (Negative)
[2021-03-04 16:42] LABS: URINE LEUKOCYTES-REFLEX 2+ (Negative)
[2021-03-04 16:54] LABS: BACTERIA-REFLEX 1-9 Few /HPF (None Seen); SQUAMOUS 0-3 Few /LPF (0-3); URINE RBC 1-2 Rare /HPF (NONE SEEN); URINE WBC-REFLEX 6-15 Few /HPF (0-5)
[2021-03-04 16:55] LABS: CRYSTALS None Seen /LPF (None Seen)
[2021-03-04 19:55] VITALS: BP 115/59
--- NOTE | 2021-03-05 01:06 | NUR ---
DRINKING SIPS OF WATER AND MIRALAX. TYLENOL GIVEN DURING C/O LEG CRAMPS, RELAXING, WATCHING TV, MORE ABLE TO STRAIGHTEN LEGS AND TURN SELF TO SIDE, SLEEPING INTERMITTENTLY. MAGNOLIA SCHWARTZ DD. REQUIP WAS GIVEN SCHEDULED, CHIKA WAS THE FIRST TIME THAT I KNOW OF THAT SHE DID NOT SPECIFICALLY ASK FOR IT. MAGNOLIA TO JAVAN
[2021-03-05 05:58] LABS: ABSOLUTE NEUTROPHILS 8.1 thou/uL (1.4-8.2); BASOPHILS 1.5 % (0.0-2.0); EOSINOPHILS 2.5 % (0.0-3.0); HEMOGLOBIN 10.8 gm/dL (12.0-15.0); MCHC 32.8 g/dL (28.0-37.0); MCV 79.2 fL (80.0-100.0); MONOCYTES 8.3 % (1.0-8.0); PLATELET COUNT 656 thou/uL (150-400); POLYS 74.7 % (36.0-66.0); RBC 4.17 mil/uL (4.20-5.00); RDW 14.8 % (10.5-14.5); WBC 10.9 thou/uL (4.0-11.0)
[2021-03-05 06:01] LABS: ALBUMIN 2.7 g/dL (3.4-5.0); CALCIUM 9.2 mg/dL (8.5-10.1); CREATININE 1.2 mg/dL (0.6-1.0); MAGNESIUM 1.8 mg/dL (1.8-2.4); PHOSPHORUS 3.8 mg/dL (2.6-4.7); POTASSIUM 4.2 mmol/L (3.5-5.1); TOTAL BILIRUBIN 0.4 mg/dL (0.2-1.0); TOTAL PROTEIN 7.4 g/dL (6.4-8.2)
[2021-03-05 07:30] VITALS: BP 141/80
[2021-03-05 12:07] LABS: GLOBULIN TOTAL 3.8 g/dL (2.2-3.9); M-SPIKE Not Observed g/dL (Not Observed)
--- NOTE | 2021-03-05 12:23 | HC ---
[facility] [address] CONSULTATION Name: RALEIGH GAINES Room #: 510-P [facility] IN ..#: [id number] Admission: 02/27/21 Attend Phys: Juancarlos Rollins MD Discharge: Date of : 57 Report #: [id number] THIS REPORT FOR: cc: FAM - Family physician unknown FAM - Family physician unknown Paulo Felix PhD ~ DOC #: [id number] Paulo Felix, PhD DATE OF SERVICE: 03/04/2021 NEUROBEHAVIORAL STATUS EXAM ATTENDING PHYSICIAN: Juancarlos Rollins M.D. WEB PUBLISHER: Paulo Felix, PhD CLINICAL PRESENTATION: The patient is a 65-year-old female admitted to the hospital initially on 02/24/2021 with the shortness of breath and severe cramping in her legs. She was diagnosed with a pulmonary embolism, moderate bilateral along with bilateral lower extremity DVT worse involving the right lower extremity. The patient also had elevated troponin and acute renal insufficiency. Her medical history includes hypertension, restless leg syndrome, elevated LFTs. She was planning to see a neurologist to assist with ambulation. The patient has an old right acute ankle fracture. Her assessment on admission to the rehabilitation unit was generalized weakness with debilitation, moderate bilateral pulmonary emboli with bilateral deep venous thrombosis, elevated troponin, history of acute renal insufficiency and lower extremity spasms. A complete description of her medical condition, history and medications can be found in her medical record. Neuropsychological consultation was requested to provide assistance in the assessment of cognitive and emotional status and to provide recommendations and services. Prior to this most recent admission, she reports having been living independently with her in their house. This is her third marriage. She has 1 child. The patient reported having obtained a GED. 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 The patient reported having discontinued driving in 06/2020. She indicates that she was managing her nutrition and medication. She does not report a prior history of treatment for depression or anxiety. TECHNIQUES UTILIZED: Clinical interview, review of medical records, staff consultation and behavioral observation, mini-mental status exam 2 standard version and clock drawing. EXAMINATION FINDINGS: The patient was alert and cooperative with the assessment. However, intermittent confusion was noted during the interview and [facility] [address] [place] [address] CONSULTATION Name: RALEIGH GAINES Room #: 510-P [facility] IN [facility].#: [id number] Admission: 02/27/21 Attend Phys: Juancarlos Rollins MD Discharge: Date of : 57 Report #: [id number] testing. She lacks insight into her cognitive deficits as cognitive functioning, sleep and appetite are reported as normal. Prior history of treatment for anxiety or depression was denied. Performance on the MMSE 2 brief version was extremely low with a raw score of 11/16. She was 3/3 for initial registration, 3/5 for orientation to time, 5/[address] and 0/3 for immediate recall of 3 items after a brief time delay and distraction. The patient required use of the orientation board to assist with orientation to time. Performance on the MMSE 2 standard version was extremely low with a raw score of 18/30. The patient was 0/5 for serial sevens, 2/2 for naming, 1/3rd 0/1 for repetition, 0/3 for comprehension. She could read and follow a single command. The patient was unable to write a sentence or copy a simple geometric design. Severe deficits in visual spatial constructions are noted. The patient also presents with severe intrusive and perseverative responses. The patient is presenting with severe neurocognitive deficits. Deficits are suggested in frontal/anterior cerebral functioning which may be associated with delirium. She is taking several sedating medications which are likely contributing to the delirium. DIAGNOSTIC IMPRESSION: Delirium, hypoactive, acute. Neurocognitive disorder -- extent to be determined. RECOMMENDATIONS: Reduce medication with sedating features. Continued speech therapy to assist with cognitive stimulation and compensatory strategies. Neuropsychological testing following her resolution of delirium is indicated. Frequent orientation will be necessary along with encouragement to engage and her rehabilitation program. Thank you very much for allowing me to provide the consultation on this patient. Paulo Felix, PhD GONZALO/ECTOR <ELECTRONICALLY SIGNED> By: Paulo Felix, PhD 03/05/21 1223 [id number] Paulo Felix, PhD /nt
--- NOTE | 2021-03-05 12:40 | NUR ---
Nutrition: RECommend consideration of appetite stimulant. PO averaging 20% of meals, plus 100% ensure daily with strong encouragement.
--- NOTE | 2021-03-05 12:54 | NUR ---
Team meeting, recommendation, last week had CT of head. blank farcical expression. Complaints of restless leg. Had to replace magnesium last week. Xray yesterday. Transfer partial to moderate assistance. 6 -10 ft with fww and moderate assist. Po abx for Uti. Needs assist with medication at home. Re team next week. Does she have assist at home, does her work. Anticipated dc 03/15/21.
--- NOTE | 2021-03-05 14:08 | NUR ---
ASSUMED CARE AT 0700. ALERT AND ORIENTATED TO SELF AND PLACE. PT SEEMS A BIT BETTER IN THE SENSE OF FOLLOWING INSTRUCTIONS AND UP WITH 1 PERSON ASSIST. SHE COMPLAINED OF FEELING DIZZY WITH STANDING. STILL COMPLAIN OF MUSCLE CRAMPS IN HER L POSTERIOR THIGH, TYLENOL DOSE INCREASED TO 1000MG AND VOLTAREN GEL APPLIED. JUAN COMMERCIAL PAINTER ALSO NOTIFIED ABOUT PT'S CONCERNS WITH RESTLESS LEG SYNDROME. BACLOFEN 5MG X 1 GIVEN WITH NO C/O SEDATION. PARTICIPATED WITH THERAPY AND MANAGE TO PROGRESS SLIGHTLY TODAY. SAT IN THE CHAIR FOR HER BREAKFAST AND LUNCH, EAT BETTER DURING BREAKFAST AND FAIR FOR LUNCH.
[2021-03-05 19:12] VITALS: BP 131/70
--- NOTE | 2021-03-05 23:24 | NUR ---
assumed care approx 0 evening 03/05. pt lying in bed with head of bed elevated at change of shift. pt c/o pain to left upper thigh and muscle spasm. pt also anxious and whimpering in bed. pt given meds as ordered and pt appears to be sleeping at present. clark to dd with clear, yellow urine to bag. bed alarm on and call light in reach.
--- NOTE | 2021-03-06 07:52 | NUR ---
ASSUMED CARE AT 0700. PATIENT IS ALERT AND ORIENTED X1-2. PATIENT CARRION'S, TUNGSTEN TENDER ARE EQUAL. PATIENT CONTINUES TO HAVE TREMORS. LUNGS ARE CLEAR AND DEMINISHED. ABD IS SOFT WITH BSX4. PATIENT HAS MERIDA TO DD, DRAINING ROBBIE COLORED URINE. FALL AND SAFETY PROTOCOLS IN PLACE. C/O LEG CRAMPS. SCED MEDS GIVEN, WARM BLANKET GIVEN. CONTINUES TO PROGRESS SLOWLY TOWARDS D/C GOALS. WILL CONTINUE TO MONITER.
[2021-03-06 08:00] VITALS: BP 150/74
--- NOTE | 2021-03-06 12:11 | NUR ---
Cm spoke with beside nurse, requested that if spouse visits today to get clarification of his contact number, r/t one on file no longer works.
[2021-03-06 19:10] VITALS: BP 131/66
[2021-03-07 07:15] VITALS: BP 136/70
[2021-03-07 07:53] LABS: HEMATOCRIT 31.8 % (37.0-47.0); HEMOGLOBIN 10.4 gm/dL (12.0-15.0); MCH 25.7 pg (26.0-34.0); MCHC 32.8 g/dL (28.0-37.0); MCV 78.4 fL (80.0-100.0); RBC 4.05 mil/uL (4.20-5.00); RDW 14.8 % (10.5-14.5); WBC 11.3 thou/uL (4.0-11.0)
--- NOTE | 2021-03-07 09:00 | NUR ---
ASSUMED CARE AT 0700. PATIENT IS ALERT AND ORIENTEDX 2-3. PATIENT ABLE TO CARRION'S. VALIDATION ANALYST ARE EQUAL. LUNGS ARE CLEAR AND DEMINISHED. ABD IS SOFT WITH BSXR4. UP TO THE CHAIR FOR BREAKFAST. PATIENT IS ASSIST OF 1 WITH GAIT BELT FROM BED TO CHAIR. FALL AND SAFETY PROTOCOLS IN PLACE. C/O RESTLESS LEGS. MEDICATED WITH SCED MED. CONTINUES TO PROGRESS SLOWLY TOWARDS D/C GOALS. WILL CONTINUE TO MONITER.
--- NOTE | 2021-03-07 10:00 | NUR ---
Follow up: Visited with pt this morning r/t low po intakes. Pt reports she eats well when at home and has a good appetite, but does not care for the food here. She reports UBW ~150# but is now showing ~15# lower. She reports she is fine with the weight loss, but agrees that weight stabilization is the goal at this time. Currently gets Ensure Enlive at dinner, strawberry flavor, but agreed to increase that to twice daily since her intake is poor. Intake better at breakfast meals. Will increase Ensure to BID at lunch and dinner and change to chocolate per pt request. Remains low nutrition risk.
--- NOTE | 2021-03-07 15:05 | NUR ---
Cont. with weekly team meetings and dcp as needed. Still needing good contact number for spouse? Cm spoke with bedside staff and not seen to ask him for good number. Will cont following as needed for dc needs.
[2021-03-07 19:11] VITALS: BP 129/68
--- NOTE | 2021-03-08 00:04 | NUR ---
PT ALERT AND ORIENTED X 4. UP TO BSC WITH ASSIST X 2. VOIDING WITHOUT DIFFICULTY. PT REFUSED MIRALAX AT HS. PT DENIES PAIN OR DISCOMFORT. BED ALARM ON FOR SAFETY. PT APPEARS TO BE SLEEPING ON HOURLY ROUNDS.
[2021-03-08 09:31] VITALS: BP 124/68
--- NOTE | 2021-03-08 14:46 | NUR ---
Assumed pt care at 7am.Pt in bed resting.Assessment completed.vss. Pt c/o leg pain rated 9/10 but too soon to give pain med.Assisted with transfer from bed to chair.Partial bath given by therapist.Pt left for mri after breakfast but unable to complete the test due to pain.Nette Meyers ordered ativan to be given prior to pt return to test at 1400 but unfortunately pt unable to do the test despite given ativan.She was brought back to room second time.Fall bundles in place.Will continue to monitor.
[2021-03-08 19:58] VITALS: BP 120/62
[2021-03-09 08:00] VITALS: BP 129/54
--- NOTE | 2021-03-09 17:56 | NUR ---
ASSUMED CARE AT 0700. ALERT AND ORIENTATED X 2-3. PT WAS UP EARLIER WITH OT AND ABLE TO MOVE WITHOUT MUCH PROBLEM FROM BED TO CHAIR. THE DAY PROGRESSED PT REPORTED HAVING RESTLESS LEG SYNDROME AND REQ TO GO BACK TO BED. ABLE TO HOAX PT TO STAY TILL LUNCH AND PHY THERAPY. SEEN BY CHASITY BLANC (ORTHO) AND CHANGED ORDERS TO NWB TO LLE DUE TO ABNORMAL CT SCAN REPORT TO E. NOTED LESION AND WANTS TO RULE OUT MALIGNANCY AND NEED TO SEND OUT TO A SPECIALTY SERVICE AT A DIFFERENT HOSP AND ORTHO NOTIFIED DR GE. PT DIURESED AND HAD A LARGE BM TODAY. ABLE TO STRAIGHTEN LEG AND IS CALMER TODAY.
[2021-03-09 20:13] VITALS: BP 123/48
[2021-03-09 21:15] VITALS: BP 122/54
--- NOTE | 2021-03-10 00:12 | NUR ---
PT ASSESSMENT COMPLETED AND VSS. MEDS GIVEN ORDERED AND WELL TOLERATED. FALL PRECAUTIONS IN PLACE. C/O ANXIETY THIS EVENING. PRN ANXIETY MEDICATION HELPFUL. C/O PAIN AND CRYING OUT WITH MOVEMENT ONLY. PT SAYS THAT SHE FEELS FINE UNLESS SHE IS MOVING. ASST WITH REPOSITION FOR COMFORT. FEMALE EXTERNAL CATH AT HS. SLEEPING WELL. WILL CONTINUE TO MONITOR FREQUENTLY.
[2021-03-10 07:33] VITALS: BP 133/77
--- NOTE | 2021-03-10 17:50 | NUR ---
ASSUMED CARE AT 0700. ALERT AND ORIENTATED X 3. PAIN IS MANAGEABLE AND SHE IS ABLE TO GET OUT OF BED WITH MIN ASSIST. DOES REPORT OCCASIONALLY SPASM. APPETITE IMPROVING. HAD A BM TODAY. STILL MAINTAINING NWB TO LLE AND PT VERBALIZES UNDERSTANDING. NO OTHER CONCERNS, CONT TO MONITOR.
[2021-03-10 19:32] VITALS: BP 119/62
--- NOTE | 2021-03-11 00:21 | NUR ---
PT ALERT AND ORIENTED X 3. UP TO BSC WITH ASSIST X 1. PT REFUSED MIRALAX AT HS. PT C/O PAIN IN LEGS. CALLED OUT FOR REQUIP WHICH HELPS WITH LEG PAIN. BED ALARM ON FOR SAFETY. PT CHECKED ON HOURLY ROUNDS.
[2021-03-11 07:30] VITALS: BP 162/75
--- NOTE | 2021-03-11 07:45 | NUR ---
OCCUPATIONAL THERAPIST CALLED FOR HELP TO THE ADL BATH ROOM. RUSHED TO THE BATHROOM AND NOTICED PT WAS SLUMPED TO HER RIGHT SIDE, EYES OPEN AND PT HAS EXPRESSIVE APHASIA WITH R SIDED WEAKNESS. UNABLE TO FOLLOW COMMANDS. PUPILS EQUAL AND REACTIVE. BP 162/75 HR 101 AND SAT 97%. IMMEDIATELY CODE STROKE ACTIVATED AND PT ASSISTED TO THE BED AND SENT STAT FOR CT SCAN OF HEAD. DR GIVENS SAW PT AND ORDERS RECEIVED TO SEND PT TO ICU AFTER CT SCAN. ICU NURSE AND HOUSE SUP ALONG WITH THIS NURSE WENT TO RADIOLOGY AND PT WAS TRANSFERRED TO ICU. CALLED PT'S SPOUSE WALT AND UPDATED ABOUT THE SITUATION.
--- NOTE | 2021-03-11 12:35 | H ---
[facility] [place] [address] HISTORY AND PHYSICAL Name: RALEIGH GAINES Room #: 510-P [facility] M.R.#: [id number] Admission: 02/27/21 Attend Phys: Juancarlos Rollins MD Discharge: 03/11/21 Date of : 57 Report #: [id number] THIS REPORT FOR: cc: FAM - Family physician unknown FAM - Family physician unknown Juancarlos Rollins MD ~ DOC #: [id number] Juancarlos Rollins MD DATE OF SERVICE: 02/28/2021 HISTORY OF PRESENT ILLNESS: The patient is a 65-year-old white female who had complaints of severe cramping in her legs and shortness of breath. She has been more sedentary as of late. She was admitted for acute hospitalization on 02/24/2021 and workup revealed pulmonary embolism, moderate bilateral along with bilateral lower extremity DVT, worse involving the right lower extremity. She also had an elevated troponin and acute renal insufficiency. Pulmonary medicine was involved as well as cardiology and she has been anticoagulated. She still had considerable problems with painful spasms of her lower extremities. She has been using some IV fentanyl as well as Flexeril. She has been switched now to tramadol. She was felt to be ready and has been admitted for acute in-hospital inpatient rehabilitation. PAST MEDICAL HISTORY: Includes hypertension, restless leg syndrome, elevated LFTs. She was noted to see a neurologist for problems ambulating, although this has not happened to this point. She has an old right ankle fracture in the 1990s. MEDICATIONS: Please see the full medication listing. ALLERGIES: ASPIRIN. HABITS: Prior history of tobacco abuse, 1 pack per day for 45 years, has previously quit and no longer smoking. Lives in an apartment with her spouse. The patient was modified independent without gait in the apartment, although she utilized a front-wheeled walker, went out in the community. Second Floor elevator. She notes that her could be of assistance if needed. REVIEW OF SYSTEMS: Did not offer any current complaints of chest pain, shortness of breath. She continues to have the significant lower extremity cramping, although it is continuing to gradually improve. PHYSICAL EXAMINATION: GENERAL: A 65-year-old white female in no obvious distress. VITAL SIGNS: Temperature 98.6, pulse 96, respirations 18, blood pressure 135/59. HEENT: Appeared to be benign. [address] [address] HISTORY AND PHYSICAL Name: RALEIGH GAINES Robert Room #: 510-P [facility] ..#: [id number] Admission: 02/27/21 Attend Phys: Juancarlos Rollins MD Discharge: 03/11/21 Date of : 57 Report #: [id number] NEUROLOGIC: Cranial nerves are grossly intact. Facies are symmetric. She does have functional range of motion of both upper extremities, strength is grade 4-/5. DTRs are trace to 1. Lower extremities, no focal calf swelling. She did have some pain with movement of the left lower extremity, but the cramping was decreased from when I previously examined her. No current focal calf swelling. I would grade her strength of the lower extremities is probably a grade 3+ to 4-/5. Tone appeared to be intact. Functionally, she has been somewhat limited by the bed rest with anticoagulation and then with the spasms. She is max assist for lower body dressing, Transfers are noted to be mod assist. ASSESSMENT: A 65-year-old female with the following problem list: 1. Generalized weakness with debilitation. 2. Moderate bilateral pulmonary emboli with bilateral deep vein thromboses. 3. Elevated troponin with cardiology involved, thought to likely be heart strain from the pulmonary embolism. 4. History of acute renal insufficiency, improving. 5. Significant lower extremity spasms. These are gradually improving. We are trying tramadol to try to help with pain along with methocarbamol and she does have Tylenol available and lorazepam is every 6 hours p.r.n. She is on Eliquis. PLAN: The patient is admitted for acute in-hospital inpatient rehabilitation. Goal is to maximize her functional independence with mobility and ADLs to try to get to the point where she can return back to the home setting. As far as risk of complications, she has the multiple medical comorbidities as noted above. Prognosis is reasonably good with estimated length of stay probably at least 10 days and will have to assess how she progresses. Potential barriers would include her multiple medical comorbidities and decreased functional status. Juancarlos Rollins MD DGS <ELECTRONICALLY SIGNED> By: Juancarlos Rollins MD 03/11/21 1235 1151 1320 Juancarlos Rollins MD /nt
--- NOTE | 2021-03-11 12:35 | PLAN ---
[facility] [place] [address] REHAB UNIT PLAN OF CARE Name: RALEIGH GAINES Room #: 510-P [facility] IN M.R.#: [id number] Admission: 02/27/21 Attend Phys: Juancarlos Rollins MD Discharge: 03/11/21 Date of : 57 Report #: [id number] THIS REPORT FOR: cc: FAM - Family physician unknown FAM - Family physician unknown Juancarlos Rollins MD ~ DOC #: [id number] Juancarlos Rollins MD DATE OF SERVICE: 03/01/2021 PROGRESS NOTE AND OVERALL PLAN OF CARE SUBJECTIVE: The patient is in no distress. She is seen back today in followup. OBJECTIVE: VITAL SIGNS: Temperature 97.1, pulse 92, respirations 18, blood pressure 119/67. GENERAL: She is alert, follows basic commands. MUSCULOSKELETAL: She thinks that spasms are a little better as far as her legs. She is on muscle relaxers as noted. She is on baclofen. She does have lorazepam available. She is on Requip. She is on blood thinners with her pulmonary embolism and DVTs. Using tramadol for pain. Transfers were min assist. Gait was min assist, 1 foot with a front-wheeled walker. This is an improvement for her. Standby assistance for bed mobility. In occupational therapy, lower body dressing is mod assist. Upper body dressing is set up. She does have speech involved and has moderate cognitive deficits with severe memory deficits. ASSESSMENT: A 65-year-old female with the following problem list: 1. Generalized weakness with debilitation. 2. Moderate bilateral pulmonary emboli with bilateral deep vein thromboses. 3. Elevated troponin with cardiology involved, thought to likely be heart strain from the pulmonary embolism. 4. History of acute renal insufficiency, improving. 5. Significant lower extremity spasms and continued to be gradually improving. PLAN: Overall plan of care is based on the pre-admission screen and information garnered from therapy assessments. 1. Estimated length of stay is probably 10 days to 14 days pending progress. 2. Medical prognosis is reasonably good. 3. Anticipated interventions includes the interdisciplinary acute inpatient rehabilitation program. 4. Anticipated functional outcomes would be for the patient to become modified independent with transfers, mobility and ADLs and to improve as far as cognition, so she can return back to the home setting. Goal would be up with a [facility] [address] [place] [address] REHAB UNIT PLAN OF CARE Name: LIANARALEIGH A Room #: 510-P DIS IN [facility].#: [id number] Admission: 02/27/21 Attend Phys: Juancarlos Rollins MD Discharge: 03/11/21 Date of : 57 Report #: [id number] walker. 5. Discharge destination would be back to the home setting where she lives with her spouse. 6. Expected therapy by discipline includes PT, OT and speech 1 hour per day each, 5 days a week throughout the duration of the acute inpatient rehabilitation stay. ADDENDUM: The patient's prognosis for significant practical improvement within a reasonable period of time appears good. Given the patient's complex medical condition and risk of further medical complication, rehabilitation services could not be safely provided at the lower level of care such as a retirement facility. MD JACI Hernandez/HOLLY <ELECTRONICALLY SIGNED> By: Juancarlos Rollins MD 03/11/21 1235 [id number] [id number] Juancarlos Rollins MD /nt
== END 2021-03-11 07:40 | disposition short-term general hospital (02) | DRG 947 ==
PROVIDERS: Internal Medicine; Nurse Practitioner; Nurse Practitioner Family; ADMIT Physical Medicine & Rehabilitation; ATTEND Physical Medicine & Rehabilitation
DX: R53.81 Other malaise (principal); I26.99 Other pulmonary embolism without acute cor pulmonale; N39.0 Urinary tract infection, site not specified; G93.40 Encephalopathy, unspecified; E44.0 Moderate protein-calorie malnutrition; I82.403 Acute embolism and thrombosis of unspecified deep veins of lower extremity, bilateral; E87.1 Hypo-osmolality and hyponatremia; R33.9 Retention of urine, unspecified; E87.6 Hypokalemia; E83.42 Hypomagnesemia; I10 Essential (primary) hypertension; F41.1 Generalized anxiety disorder; F32.9 Major depressive disorder, single episode, unspecified; G25.81 Restless legs syndrome; R41.0 Disorientation, unspecified; R00.0 Tachycardia, unspecified; D50.9 Iron deficiency anemia, unspecified; I27.20 Pulmonary hypertension, unspecified; F43.20 Adjustment disorder, unspecified; D47.3 Essential (hemorrhagic) thrombocythemia; M25.852 Other specified joint disorders, left hip; Z86.73 Personal history of transient ischemic attack (TIA), and cerebral infarction without residual deficits; Z88.8 Allergy status to other drugs, medicaments and biological substances; Z68.21 Body mass index [BMI] 21.0-21.9, adult; Z87.891 Personal history of nicotine dependence
CPT/HCPCS: 10112

== ENCOUNTER 2021-03-11 08:05 | Inpatient (IN) | payer OTHER ==
[~2021-03-11] VITALS: Ht 170.2 cm; Wt 60.7 kg
[2021-03-11] VITALS (49 sets, daily range): BP systolic 124–174; BP diastolic 53–90
--- NOTE | 2021-03-11 08:00 | NUR ---
0800- CODE STROKE CALLED EARLIER AND PATIENT TRANSFERED TO ICU AT THIS TIME. SHE WAS HOOKED UP TO MONITORING SYSTEMS, SETTLED INTO BED.
--- NOTE | 2021-03-11 08:55 | NUR ---
Chart review. Discussed during am rounds, called code stroke this am, from 5n acute rehab. Will cont following as needed for dc needs.
[2021-03-11 09:06] LABS: ABSOLUTE NEUTROPHILS 9.4 thou/uL (1.4-8.2); BASOPHILS 0.8 % (0.0-2.0); EOSINOPHILS 2.5 % (0.0-3.0); HEMATOCRIT 32.8 % (37.0-47.0); HEMOGLOBIN 10.3 gm/dL (12.0-15.0); MCH 25.2 pg (26.0-34.0); MCHC 31.5 g/dL (28.0-37.0); MCV 80.1 fL (80.0-100.0); MONOCYTES 7.7 % (1.0-8.0); PLATELET COUNT 639 thou/uL (150-400); RDW 15.1 % (10.5-14.5); WBC 11.9 thou/uL (4.0-11.0)
[2021-03-11 09:12] LABS: ANION GAP 8 mmol/L (7-16); BUN 23 mg/dL (7-18); CALCIUM 9.7 mg/dL (8.5-10.1); CHLORIDE 92 mmol/L (98-107); CO2 29 mmol/L (21-32); GLUCOSE 102 mg/dL (74-106); POTASSIUM 3.9 mmol/L (3.5-5.1); SODIUM 129 mmol/L (136-145)
--- NOTE | 2021-03-11 09:13 | NUR ---
OLIVERIO COORDINATOR TO SEE PATIENT POST CODE STROKE ACTIVATION. PT IN ICU WITH CT W/O COMPLETED. PT APHASIC, RIGHT ARM AND LEG NEARLY FLACCID. RIGHT FACIAL DROOP. INABILITY TO FOLLOW COMMANDS. SENSORY INTACT. PT WILL NOT TRACK. DR VERDUGO NOTIFIED. ORDERS TO COMPLETE CT ANGIO OF HEAD AND REPORT TO HIM. STAFF HAD MAJOR DIFFICULTIES OBTAIN IV ACCESS HOWEVER SUCCESSFUL AFTER 7 IV ATTEMPTS. 20 PLACED IN LAC AND 22 PLACED IN RIGHT HAND. AWAITING CREATINE TO PROCEED TO CT. WILL CONTINUE TO FOLLOW.
[2021-03-11 09:21] LABS: APTT 25.5 Seconds (24.5-32.8); INR 1.06; PROTIME 11.5 Seconds (10.5-12.1)
[2021-03-11 09:22] LABS: ALBUMIN 3.1 g/dL (3.4-5.0); SGOT 20 U/L (15-37); SGPT 16 U/L (30-65); TOTAL BILIRUBIN 0.4 mg/dL (0.2-1.0); TOTAL PROTEIN 8.1 g/dL (6.4-8.2); TROPONIN-I <0.06 ng/mL (<0.06)
--- NOTE | 2021-03-11 09:48 | EKG ---
[address] [address] ELECTROCARDIOGRAM REPORT Name: LIANARALEIGH A Room #: 249- ADM IN M.R.#: [id number] Admission: 03/11/21 Attend Phys: Garry Erazo MD Discharge: Date of : 57 Report #: [id number] [facility] Test Date: 2021-03-11 Test Time: 08:52:23 Pat Name: RALEIGH GAINES Department: Room: 249 Gender: F Gravel Screener: MARIO ALBERTO : 1955 Requested By: Garry Erazo Order Number: [id number] MD: Sunday Corrales Measurements Intervals Erath Rate: 91 P: 73 OK: 166 QRS: -31 QRSD: 130 T: 57 QT: 377 QTc: 464 Interpretive Statements Sinus rhythm Biatrial enlargement Compared to ECG 02/24/2021 07:43:28 Left-axis deviation no longer present Electronically Signed On 03-11-2021 9:48:07 CDT by Sunday Corrales [email or web address] <ELECTRONICALLY SIGNED> By: Sunday Corrales MD, [facility] 03/11/2148 Corrales MD, FAC /EPI
--- NOTE | 2021-03-11 10:49 | NUR ---
1009- LABS CAME BACK, NURSE VARIFIED WITH DR. CHON OVERTON FLUID ORDER WITH SODIUM LEVEL. 1015- RESPONSE BACK IS TO CONTINUE ORDER.
--- NOTE | 2021-03-11 12:00 | NUR ---
PATIENT TO CAT SCAN TWICE SO FAR, RESULTS NOTED TO DR. VERDUGO, FOAM GUN OPERATOR, AND DR. GIVENS. NIH STROKE SCALE OBTAINED PATIENT ABLE. GOING TO GIVE ATIVAN FOR MRI. NURSE COMMUNICATED AND UPDATED DR. GIVENS NEEDED.
[2021-03-11 16:52] LABS: URINE BILIRUBIN NEGATIVE (Negative); URINE BLOOD TRACE (Negative); URINE CLARITY CLEAR; URINE COLOR YELLOW; URINE GLUCOSE-RANDOM* NEGATIVE (Negative); URINE KETONES NEGATIVE (Negative); URINE LEUKOCYTES TRACE (Negative); URINE NITRITE NEGATIVE (Negative); URINE PROTEIN (DIPSTICK) NEGATIVE (Negative); URINE UROBILINOGEN 0.2 E.U./dl (0.2-1.0)
--- NOTE | 2021-03-11 17:00 | NUR ---
NURSE COMMUNICATED WITH DR. GIVENS IN REGARDS TO INABILITY TO COMPLETE SWALLOW EVALUATION SO PATIENT WILL REMAIN NPO. LOVENOX STARTED. PATIENT SPOUSE ASSISTED WITH ADMIT INFORMATION. HE TOOK HOME PATIENTS WEDDING RING, PLACED IT ON THE NECKLACE HE WAS WEARING AND SHOWED RN.
--- NOTE | 2021-03-11 19:53 | NUR ---
PATIENT NOT PROGRESSING TOWARDS PLAN OF CARE EVIDENCED BY FEBRILE STATE AT THIS TIME, TACHYCARDIA, INTERMITTENTLY DESATURATION-PLACED ON OXYGEN. SHE HAS BEEN DROWSY SINCE THE ATIVAN THAT WAS GIVEN FOR THE MRI. NURSE INFORMED DR. GIVENS OF PATIENTS FEBRILE STATE, ORDERS RECIEVED, BLOOD CULTURES SENT, UA SENT, IV FLUIDS INCREASED. NURSE HAS UPDATED PATIENT THROUGHOUT THE DAY OF ALL TREATMENTS AND INTERVENTIONS PERFORMED. NURSE UPDATED PATIENTS SPOUSE IN PERSON AND OVER THE PHONE THIS EVENING OF PATIENT FEVER, NEURO STATUS, AND PLAN OF CARE. HE EXPRESSED HE UNDERSTOOD. PLAN OF CARE IS TO CONTINUE TO PERFORM NIH STROKE SCALE, MONITOR HEMODYNAMICS, AND COMMUNICATE WITH PHYSICIAN FINDINGS.
--- NOTE | 2021-03-11 19:58 | NUR ---
Nurse talked with Dr. Jaime multiple times today, multiple calls placed and physician returned call as was able. Nurse talked with him this evening in regards to results of MRI, which he expressed he talked with Dr. Erazo about this. Nurse informed him of patient current condition of fever, drowsiness, tachycardia. He expressed he will refer further orders for this to Primary Physician. No new orders at this time.
[2021-03-11 22:06] LABS: GLYCOHEMOGLOBIN (HGB A1C) 5.8 % (4.8-5.6)
[2021-03-12] VITALS (23 sets, daily range): BP systolic 108–157; BP diastolic 48–76
[2021-03-12 04:36] LABS: CHOLESTEROL 159 mg/dL (<200); HDL CHOLESTEROL 37 mg/dL (>40); LDL CHOLESTEROL 106 mg/dL (<100); TC:HDL 4.3 Ratio (Not establshd); TRIGLYCERIDE 83 mg/dL (<150); VLDL 17 mg/dL (<40)
[2021-03-12 04:47] LABS: SERUM ASSESSMENT Clear
--- NOTE | 2021-03-12 05:54 | NUR ---
Patient has improved nurologically. NIH is down to 12 from 18. Patient is able to move right side and is following commands. Patient is able to state name and participate in the NIH assessment. Patient continues to have pain in the left hip area. Patient does not want to move it very much. Heart rate and rhythm have remianed stable. Adequate oxygenation on 2L/NC. Will reevaluate speech in the am with speech therapy. Adequate U/O. Patient was febrile at the beginning of the shift. Temp came down with tylenol supp. Am labs drawn. Awaiting results. No family called this shift. Patient is progressing towards goals. See documentation on interventions for assessment details.
[2021-03-12 07:18] LABS: ABSOLUTE NEUTROPHILS 8.7 thou/uL (1.4-8.2); BASOPHILS 1.8 % (0.0-2.0); EOSINOPHILS 2.8 % (0.0-3.0); HEMATOCRIT 30.8 % (37.0-47.0); HEMOGLOBIN 9.9 gm/dL (12.0-15.0); LYMPHOCYTES 2.6 % (24.0-44.0); MCH 25.8 pg (26.0-34.0); MCHC 32.1 g/dL (28.0-37.0); MCV 80.4 fL (80.0-100.0); MONOCYTES 4.5 % (1.0-8.0); POLYS 88.3 % (36.0-66.0); RBC 3.83 mil/uL (4.20-5.00); RDW 15.1 % (10.5-14.5); WBC 9.8 thou/uL (4.0-11.0)
[2021-03-12 07:19] LABS: ANION GAP 13 mmol/L (7-16); BUN 14 mg/dL (7-18); CALCIUM 8.7 mg/dL (8.5-10.1); CHLORIDE 100 mmol/L (98-107); CO2 22 mmol/L (21-32); CREATININE 1.1 mg/dL (0.6-1.0); GLUCOSE 107 mg/dL (74-106); POTASSIUM 3.8 mmol/L (3.5-5.1); SODIUM 135 mmol/L (136-145)
[2021-03-12 07:20] LABS: PLATELET COUNT 552 thou/uL (150-400)
--- NOTE | 2021-03-12 08:15 | NUR ---
DR. BOOKER AND DR. VERDUGO PRESENT THIS AM.
[2021-03-12 09:15] LABS: OBSERVED RETIC COUNT 1.45 % (0.6-2.6)
[2021-03-12 10:07] LABS: % SATURATION 7 % (20-39); IRON 14 ug/dL (50-170); TIBC 192 ug/dL (250-450)
--- NOTE | 2021-03-12 11:50 | NUR ---
Dr. Gordon present this am and spoke with Horacio, pt's . updated on pt continuing to have L sided hip pain especially with movement. PT present to work with pt, assisted pt to sit on bed, then back to bed. at 1130, OT present to work with pt. at 1150 transferred to radiology per icu bed with RN and Perla, Radiology Transport staff for CT of chest/abd with contrast.
--- NOTE | 2021-03-12 12:40 | NUR ---
returned from radiology on textile supervisor with 02 per cart with assistance of RN and radiology transport staff.
--- NOTE | 2021-03-12 12:45 | HC ---
[facility] [place] [address] CONSULTATION Name: RALEIGH GAINES Room #: 249-P ADM IN M.R.#: [id number] Admission: 03/11/21 Attend Phys: Garry Erazo MD Discharge: Date of : 57 Report #: [id number] THIS REPORT FOR: cc: FAM - Family physician unknown FAM - Family physician unknown Federico Jaime MD ~ DOC #: [id number] Federico Jaime MD DATE OF SERVICE: 03/11/2021 HISTORY OF PRESENT ILLNESS: This is a 65-year-old female patient who was seen by me and I talked to Dr. Erazo multiple times, tool coordinator multiple times, the nurse looking after this patient. I talked to the patient's in detail. This patient was in the rehab and she was found to have a mass in the left hip region. I had seen her for the possibility of a stroke and the problem looked focal to me and the workup revealed problem with left hip. Apparently, this morning, she was noticed to have aphasia and right hemiplegia. Neurology consultation was requested again. This patient underwent a stat CT angiography which demonstrates multiple small problems, but surprisingly did not demonstrate any large embolus that was from the report and I went back and reviewed the films and in fact reviewed the film with another radiologist and this patient really does not have anything for which thrombectomy can be done. Therefore, we got a stat MRI in this patient. Stat MRI confirmed that the patient has a left thalamic stroke which will correlate with the patient's symptoms. REVIEW OF SYSTEMS: Review of systems in this patient is pretty extensive. She was admitted with DVT. She was having some cramps in the lower extremities and she was given some baclofen when she was admitted. She has some diarrhea. She has a history of restless leg syndrome. She was on anticoagulation with Eliquis for several days now. She has been seen by a roll filler and has a history of hypertension. FAMILY HISTORY: Unremarkable. SOCIAL HISTORY: The patient is and I talked to the patient's . PHYSICAL EXAMINATION: The patient's examination today was very different than the last time I saw her, she was pretty much aphasic. She said a few words, but with great difficulty. She had a right facial palsy. She did not move the right upper extremity at all and on my examination, she did not move the right lower extremity either. It was not possible to do the sensory system examination. IMPRESSION AND PLAN: MRI documented left thalamic stroke which will correlate [address] [address] CONSULTATION Name: RALEIGH GAINES Robert Room #: 249-P [facility] IN ..#: [id number] Admission: 03/11/21 Attend Phys: Garry Erazo MD Discharge: Date of : 57 Report #: [id number] with the patient's symptom of aphasia and right hemiplegia. This stroke occurred in spite of anticoagulation, so she is not a TPA candidate. She is not a thrombectomy candidate because no thrombus was found, but the fact that the stroke occurred in spite of being on anticoagulation is of concern. 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 Her platelet has persistently gone up and when the oncologist see her, they can also address the question of her high platelet. Unfortunately, nothing can be done as far as stroke is concerned. She will need PT, OT and speech therapy. I spent more than 50 minutes of time taking care of this patient and majority was spent counseling and coordinating. Federico Jaime MD PK/YOVANI <ELECTRONICALLY SIGNED> By: Federico Jaime MD 03/12/21 1245 1525 [id number] Federico Jaime MD /nt
--- NOTE | 2021-03-12 14:17 | 2DMMODE ---
[address] [address] 2 D/M-MODE ECHOCARDIOGRAM Name: RALEIGH GAINES Room #: 249-P ADM IN M.R.#: [id number] Admission: 03/11/21 Attend Phys: Garry Erazo MD Discharge: Date of : 57 Report #: [id number] THIS REPORT FOR: cc: FAM - Family physician unknown FAM - Family physician unknown Sunday Corrales MD [facility] ~ APPROVED REPORT Study performed: 03/12/2021 13:25:26 EXAM: Limited 2D Echocardiogram/Bubble study only Patient Location: ICU Room #: 249 Status: routine BSA: 1.59 HR: 94 bpm BP: 131/52 mmHg Rhythm: NSR Other Information Study Quality: Fair Indications Limited echo to do bubble study s/p recent CVA. (Complete echo done 02/24/21). Echo Enhancing Agent Indication: Rule out Shunt Agent(s) / Amount(s) Used: Agitated Saline X 2 14 cc Left Ventricle Left ventricular systolic function is normal. LVEF is 60-65%. Atria Suboptimal bubble study. Attempted twice. <Conclusion> Technically difficult study Normal left ventricle size/function Ejection fraction 60-65% Suboptimal bubble study x2 Some bubbles were seen in the LV but seen late during the injection [address] [address] 2 D/M-MODE ECHOCARDIOGRAM Name: RALEIGH GAINES Room #: 249-P [facility] IN M.R.#: [id number] Admission: 03/11/21 Attend Phys: Sheldon Mackey Discharge: Date of : 57 Report #: [id number] This may represent a small ASD. No pericardial effusion <ELECTRONICALLY SIGNED> By: Sunday Corrales MD, FACC 03/12/211416 16 16 Sunday Corrales MD, FACC /INF
--- NOTE | 2021-03-12 17:30 | NUR ---
call placed to Dr. Gordon about 1530 for potential transfer to floor if icu needed bed tonight. call returned at 1730, ok to transfer to floor, see Dr. Gordon's order. pt resting quietly at this time.
[2021-03-13] VITALS (20 sets, daily range): BP systolic 123–168; BP diastolic 64–89
--- NOTE | 2021-03-13 05:12 | NUR ---
Patient stable this shift. Slept most of the night. Repositioned q2h. Still having a lot of pain in the left hip area with any movement. Patient continues to deny pain when asked. Mental status remians the same. Heart rate and rhythm stable. large U/O. Poor appetite noted at dinner. Tolerating room air. No labs ordered for this am. No family called this shift. Patient has transfer order to CCU. No bed available at this time. Patient is progresing towards goals. See documentation on interventions for assessment details.
--- NOTE | 2021-03-13 09:12 | HC ---
[facility] [place] [address] CONSULTATION Name: RALEIGH GAINES Room #: 249-P ADM IN M.R.#: [id number] Admission: 03/11/21 Attend Phys: Garry Erazo MD Discharge: Date of : 57 Report #: [id number] THIS REPORT FOR: cc: FAM - Family physician unknown FAM - Family physician unknown Melo Hope MD ~ DOC #: [id number] cc: Garry Erazo MD, Federico Jaime MD, Phan Moore MD, Rani Chavis MD, Paulo Felix, PhD, Merlin Garcia MD, Taran Guzman MD, MD Melo Hernandez MD REASON FOR CONSULT: Destructive left acetabular lesion and thrombophilia. HISTORY OF PRESENT ILLNESS: The patient is a 65-year-old female seen in the ICU at [facility]. She was originally admitted back on 02/24/2021. At that time, she came to the hospital with leg cramping, was found to have right lower extremity DVT as well as bilateral PE. Unfortunately, as part of her workup, she was also found to have on a CAT scan on 03/08/2021 a left acetabular destructive lesion measuring 5.6 x 4 x 5.5 cm. Yesterday, she had sudden weakness. Code stroke was called and unfortunately, on her MRI, she has a left thalamic stroke. The patient is currently in the ICU. She cannot tell me what year it is, cannot tell me what institution she is at. She thought she was at [facility], seems pleasant, does not seem upset or her mood is somewhat flat at this time. Note that her face is asymmetric. Denies any headache, shortness of air, nausea, pain, bleeding or other similar things, but she is probably a very questionable historian. PAST HISTORY: Notable for what sounds like a history of possible non-ST myocardial infarction, hypertension, restless leg syndrome, also some trouble ambulating, has been seen by Neurology at [facility] in the past for unclear etiology. Imaging of the head has what suggested probably old strokes. WORK HISTORY: Not known. She was a smoker in the past. She lives with her in a second floor apartment. PHYSICAL EXAMINATION: GENERAL: The patient appears her stated age. VITAL SIGNS: Recent height is 5 feet 7 inches, 170.2 cm, weight 133 pounds or 51.7 kilograms, though notes some of the weights are 133 pounds or 60.7 kilograms, will need to clarify this. Recent blood pressure 131/52, O2 sat 98%, respirations 23, pulse 86. Note that she was febrile last night at 102.7. HEENT: Face: It shows some asymmetry with asymmetrical nasolabial folds, also cognitively, she cannot tell me the correct year or month or where we are [address] [address] CONSULTATION Name: RALEIGH GAINES Room #: 249-P [facility] IN M.R.#: [id number] Admission: 03/11/21 Attend Phys: Garry Erazo MD Discharge: Date of : 57 Report #: [id number] currently at, she mentioned [facility], seemed somewhat slow to answer. Oropharynx clear. No enlarged lymph nodes in the supraclavicular, cervical, axillary region. ABDOMEN: Without any obvious masses. EXTREMITIES: Without clubbing, cyanosis or edema. The patient does show some resistance, not wishing to move her left hip or leg. LABORATORY RESULTS: Here include a creatinine of 1.1. Transaminases normal. Alkaline phosphatase 111. INR had been 1.06. Earlier serum protein electrophoresis without a monoclonal protein. White count currently 9.8; hemoglobin 9.9, note that when this all began on 02/24/2021, it was 11. MCV 80.4, has also been 78.4, platelets 552. TSH 0.773. B12 589. COVID negative. UA unrevealing. ASSESSMENT AND PLAN: 1. Destructive left acetabular mass, others have ordered CT chest, abdomen and pelvis, which seems reasonable. This may be a metastasis from another lesion, which could be biopsied. May also need orthopedic intervention depending upon prognosis and clinical progress. 2. Left thalamic stroke, still being evaluated just happened. As above, the patient has cognitive impairment. 3. Febrile illness, unclear etiology. The patient on anti-infectives, cultures are pending. 4. Thrombophilia with recent right deep vein thrombosis and bilateral pulmonary emboli, currently on Lovenox at therapeutic doses. 5. History of non-ST elevated myocardial infarction - per others. 6. History of hypertension - per others. 7. History of restless legs - per others. 8. Weakness and cognitive impairment. We will defer to rehabilitation services. MD WRENER Zelaya/PANFILO/YARELY <ELECTRONICALLY SIGNED> By: Melo Hope MD 03/13/21 0912 0759 1243 Melo Hope MD /nt
--- NOTE | 2021-03-13 18:12 | NUR ---
PATIENT TRANSFERED FROM ICU TO CCU AT 1800. PLACED ON MONTIOR AND SETTLED IN ROOM. CURRENTLY EATING DINNER. VOICES NO NEEDS OR CONCERNS.
[2021-03-14 00:10] VITALS: BP 147/86
[2021-03-14 04:10] VITALS: BP 133/72
[2021-03-14 07:30] VITALS: BP 150/64
--- NOTE | 2021-03-14 09:24 | NUR ---
ASSUME CARE 1900. PT/VITALS STABLE. INTERMITTENT LEFT HI[ PAIN NOTED WITH MOVEMENT OF LEFT LEG. TULENOL FOR RELIEF. A/O TO PERSON ONLY AND DOES NOT COMMUNICATE NEEDS APPROPRIATELY. WILL DENY PAIN EVEN WHEN OBVIOUS. ASSESSMENT CHARTED. MODERATE PROGRESS TO POC. PLAN IS TO CONTINUE TO MONITOR LOC/ASSESS FOR STROKE. WILL CONTINUE TO MONIOR AND FOLLOW WITH POC
[2021-03-14 11:36] VITALS: BP 153/51
[2021-03-14 16:00] VITALS: BP 137/56
--- NOTE | 2021-03-14 19:44 | NUR ---
PATIENT CONTINUES TO A/O TO SELF ONLY WITH BRIEF INTERMITTENT A/OX2. PATIENT WOKRED WITH PT/OT/ST THIS SHIFT. PATIENT PULLED OUT IV, REPLACED IV IN LEFT FA WITHOUT COMPLICATION. PATIENT NOW ON THIN LIQUIDS PER ST, NO COMPLICATIONS NOTED.
[2021-03-14 20:05] VITALS: BP 148/82
[2021-03-15] VITALS (9 sets, daily range): BP systolic 144–160; BP diastolic 70–93
--- NOTE | 2021-03-15 04:40 | NUR ---
ASSUME CARE 1900. PT/VITALS STABLE. A/O TO PERSON ONLY. PLEASANTLY CONFUSED. NEEDS FREQUENT ROUNDING TO ASSESS FOR NEEDS BECAUSE OT BARE COMMUNICATES HER NEEDS. ASSESSMENT CHARTED. MODERATE PROGRESS TOPLAN OF CARE. MILD FACIAL DROOPING NOTED ON LEFT SIDE WITH MILD RIGHT HAND WEAKNESS. PT RUNS SR/MOSTLY ST ON MONITOR. PLAN IS TO CONITNUE TO MONITOR LOC AND NIH SCORE. ORTHO ON FOR HIP FX AND ONCOLOGY FOR LESIONS NOTED ON CT SCAN. WILL CONITNUE TO MONITOR AND FOLLOW WITH POC
--- NOTE | 2021-03-15 12:21 | NUR ---
Case discussed with the care team. Biopsy planned for today. ONC and ortho following. Pt working with PT/OT/ST and 5N continuing to follow along. DC planning needs are uncertain pending the bx results and plan of care. Pain continues to be a limiting issue along with wt bearing status lle. Possible new met cancer dx. Spouse is talking with the medical team. Will reassess dc planning early next week.
[2021-03-16 03:03] VITALS: BP 148/57
--- NOTE | 2021-03-16 03:34 | NUR ---
PT IS ALERT TO SELF. CONFUSED CVA. UNSURE ON YEAR OR LOCATION. EXPLAIN BUT LOOKS CONFUSED. LUNGS ARE CLEAR ON ROOOM AIR ABDOMEN IS SOFT BOWEL SOUND ACTIVE NON TINDER. DENIES ANY PAIN ISSUES CALL LIGHT WITHIN REACH. SLIGHT DROOP NOTED ON RIGHT SIDE ON LIP. ONGOING CARE AND ASSESSMENTS.
[2021-03-16 07:52] VITALS: BP 147/91
[2021-03-16 10:59] VITALS: BP 156/83
[2021-03-16 15:20] VITALS: BP 160/84
[2021-03-16 17:40] VITALS: BP 150/70
--- NOTE | 2021-03-16 18:43 | NUR ---
RECEIVED THE PATIENT, CONSCIOUS AND ORIENTED TO SELF.ON ROOM AIR BREATHING SPONTANEOSULY.NOT IN PAIN OR DISTRESS.ALL NEEDS ATTENDED. TURNED PATIENT FROM SIDE TO SIDE.
[2021-03-16 20:00] VITALS: BP 171/88
[2021-03-17 04:00] VITALS: BP 146/71
--- NOTE | 2021-03-17 05:18 | NUR ---
Patient making slow progress toward outcome goals. Vital signs and rhythm stable. High fall risks, fall precautions in place. Appetite poor, swallow precautions. IVfluids infusing. Hydrocortisone cream applied to bilateral arm rashes with some relief. Patient needs continued clark catheter for accurate I and O.
[2021-03-17 07:10] VITALS: BP 147/67
[2021-03-17 11:10] VITALS: BP 115/79
--- NOTE | 2021-03-17 16:41 | NUR ---
PT IS AWAKE, ALERT TO SELF; ABLE TO STATE HER NAME AND BIRTHDAY WHEN ASKED TO VERIFY FOR MEDICATIONS; PT UNABLE TO STATE HER NEEDS, BUT CAN ANSWER YES/NO QUESTIONS WITH Y/N NODDING. PT AT THE BEDSIDE. DR FULTON CONSULTED. DR JUAREZ CONSULTED. UPON RECEIVING PT THIS AM, PT HAD D/C'd OWN IV. PT IS UNABLE TO CONTROL/UNDERSTAND IMPULSIVENESS. VSS, AFEBRILE, ST ON MONITOR. POC IS TO CONTINUE PT/OT, PROMOTE ACTIVITY AND EATING POSSIBLE. FALL PRECAUTIONS IN PLACE. NO CONCERNS AT THIS TIME.
[2021-03-17 20:13] VITALS: BP 148/79
[2021-03-18 04:17] LABS: HEMATOCRIT 31.5 % (37.0-47.0); HEMOGLOBIN 10.1 gm/dL (12.0-15.0); MCH 25.3 pg (26.0-34.0); MCV 79.1 fL (80.0-100.0); RBC 3.99 mil/uL (4.20-5.00); RDW 15.7 % (10.5-14.5); WBC 11.2 thou/uL (4.0-11.0)
[2021-03-18 04:21] LABS: CALCIUM 9.5 mg/dL (8.5-10.1); CREATININE 0.7 mg/dL (0.6-1.0); MAGNESIUM 1.6 mg/dL (1.8-2.4); POTASSIUM 3.5 mmol/L (3.5-5.1)
--- NOTE | 2021-03-18 04:32 | NUR ---
ASSUME CARE 1900. PT/VITALS STABLE. INTERMITTENT LEFT HIP PAIN. A/O TO PERSON DELL WITH EXPRESSIVE APHASIA NOTED. VERY MILD FACIAL DROOP ON LEFT SIDE WHICH HAS IMPROVED A LOT FROM ADMISSION. SR/ST ON MONITOR. ASSESSMENT CHARTED. PROGRESSING SLOWLY TOWARDS POC. MERIDA IN WITH ADEQUATE URINE OUTPUT NOTED. NO DISTRESS NOTED THROUGH THE SHIFT. ADEQUATE REST NOTED. PLAN IS TO CONTINUE TO MONITOR LOC AND MONITOR FOR STROKE SYMPTOMS. WILL CONTINUE TO MONITOR AND FOLLOW WITH POC
[2021-03-18 04:45] VITALS: BP 135/53
[2021-03-18 08:21] VITALS: BP 152/79
[2021-03-18 12:42] VITALS: BP 114/66
[2021-03-18 16:42] VITALS: BP 164/82
[2021-03-18 17:51] VITALS: BP 159/85
--- NOTE | 2021-03-18 19:47 | NUR ---
PT IS AXO1 TO SELF; ABLE TO STATE NAME AND BIRTHDAY. CAN ANSWER YES/NO QUESTIONS, BUT UNABLE TO VERBALIZE NEEDS DUE TO EXPRESSIVE APHASIA. VSS, AFEBRILE, SR ON MONITOR. RIGHT SIDE WEAKNESS IN THE ARM WITH SOME FACIAL DROOPING. PT AT THE BEDSIDE. DR FULTON CONSULTED, PT/OT CONSULTED. POC IS TO CONTINUE TO PROMOTE EATING PT HAS POOR APPETITE; CONTINUE TO ASSESS NEURO STATUS AND ENGAGE PT. AWAITING FOR RESULTS FROM BIOPSY ON HIP. HIGH FALL PRECAUTIONS IN PLACE. NO CONCERNS AT THIS TIME.
[2021-03-18 19:52] VITALS: BP 116/51
[2021-03-19 04:34] VITALS: BP 131/67
--- NOTE | 2021-03-19 06:26 | NUR ---
ASSUME CARE 1900. PT/VITALS STABLE. INTERMITTENT LEFT HIP PAIN WITH MODERATE RELIEF FROM PAIN MEDS. A/O TO PERSON AND SOMETIMES PLACE. PT'S LOC SEEMS TO BE IMPROVING SHE SEMMS TO ANSWER QUESTIONS A LITTLE MORE APPROPRIATELY. MAJOR EXPRESSIVE APHASIA NOTED. FORGETFULNESS ALSO NOTED. URINE OUTPUT ONLY AT 225ML THROUGHOUT THE SHIFT FROM MERIDA CATH. POOR APPETIETE AND POOR FLUID INTAKE/NO IV FLUID REPLACEMENT. POSSIBLE DEHYDRATION. SR/ST ON MONITOR. PROGRESSING MODERATELY WITH POC. ASSESSMENT CHARTED. PLAN IS TO CONTINUE TO MONITO LOC FOR IMPROVEMENT. WILL CONTINUE TO MONITOR AND FOLLOW WITH POC
[2021-03-19 07:14] VITALS: BP 138/61
[2021-03-19 11:29] VITALS: BP 113/54
[2021-03-19 15:30] VITALS: BP 126/58
[2021-03-19] MEDS ORDERED: LEVOFLOXACIN500 MG PO (15:51)
--- NOTE | 2021-03-19 17:14 | NUR ---
Pt being dc'd back to [facility] acute rehab. BX results are still pending. The rehab treatment manager visited with pt/spouse today. [facility] cm to follow for dc planning needs pending her progress.
--- NOTE | 2021-03-19 18:06 | NUR ---
ASSESSMENT CHARTED - MEDS PER NOV - PT WITH APHASIA. GIVEN TRAMADOL X 1 FOR PAIN THIS AM PRIOR TO THERAPY- [facility] PATIENT ASKED SHE STATES THAT SHE IN NOT IN PAIN BUT GRIMAACES WITH L LEG MOVT. KAYCEE SMALL AMOUNT OF DIET - HAVE ENCOURAGED PATIENT TO DRINK TODAY SHE WILL DRINK WHEN HANDED THE CUP AND REQUESTED TO . DOES NOT APPEAR TO UNDERSTAND HOW TO PLACE CUP BACK ON TABLE. PT INTO VISIT - PT TO TRANSFER TO REHAB THIS EVENING AFTER SHIFT CHANGE. COVID NOW NEG. NO CO'S AT THE PRESENT TIME.
--- NOTE | 2021-03-20 15:08 | PATH ---
[facility] [address] [place] [address] PATHOLOGY RPT PROCEDURE Name: DESTINY GAINES Robert Room #: 210-P [facility] IN M.R.#: [id number] Admission: 03/11/21 Date of : 57 Discharge: 03/19/21 Report #: [id number] Path Case #: [id number] L[facility] Accession Number: [id number] . 01 Material submitted: . pelvis - CT GUIDED LT PELVIS BIOPSY. Modifiers: left . 01 Clinical history: . CT GUIDED LT PELVIS BX . 02 Diagnosis: Soft tissue, left pelvis, needle core biopsy: - POSITIVE FOR MALIGNANCY; METASTATIC ADENOCARCINOMA COMPATIBLE WITH LUNG ORIGIN, SEE COMMENT. (IUV:pit; 03/20/2021) QTP 03/20/2021 1202 Local . 02 Comment: Examination shows a gland forming malignancy with high nuclear to cytoplasmic ratio. Intraluminal necrosis is not identified. Multiple properly controlled immunohistochemical stains are performed. The tumor cells show strong membranous reactivity with CK7 and nuclear reactivity with TTF-1. Scattered rare membranous reactivity is identified with CD10. The tumor cells are nonreactive to ER, PAX-5, CDX2, vimentin, and CK20. The nonreactive immunohistochemical stains argue against a metastatic colonic adenocarcinoma, adenocarcinoma of mullerian origin, as well as a possible lymphoma. . Co-review: [employer] slides with co-reviewed by Dr. Oneida Marcum who concurs with my diagnosis. Findings of this case are discussed with Dr. Devin Kramer at approximately 11:30 am on 03/20/2021. (IUV:pit; 03/20/2021) . 02 Electronically signed: . Ailyn Ambriz MD, Pathologist NPI- [id number] . 01 Gross description: . Received in formalin labeled "Destiny Gaines and CT-guided left pelvis biopsy". Received are 3 white-yellow soft tissue cores ranging from 0.8-1.0 cm in length and 0.1 cm in diameter. The specimen is entirely submitted in cassette A1.(BLJ; 03/15/2021) J/[facility] 03/15/2021 1928 Local . 02 Pathologist provided ICD-10: C79.89 . [address] [place] [address] PATHOLOGY RPT PROCEDURE Name: LIANADESTINY Robert Room #: 210-P DIS IN M.R.#: [id number] Admission: 03/11/21 Date of : 57 Discharge: 03/19/21 Report #: [id number] Path Case #: [id number] CPT . [id number], [id number], [id number] Specimen Comment: A courtesy copy of this report has been sent to [phone] Specimen Comment: Report sent to Performed at: [address] [facility], [place] [id number] MD Joaquín Turner MD Phone: [phone] Performed at: [address] [id number] MD iAlyn Ambriz MD Phone: [phone]
== END 2021-03-19 20:10 | DRG 477 ==
LOC: 2N 08:05 → ICU 08:05 → 2N 03-13 18:01
PROVIDERS: Internal Medicine; Internal Medicine Hematology & Oncology; ADMIT Hospitalist; ATTEND Hospitalist
PROC: 0QB33ZX Excision of Left Pelvic Bone, Percutaneous Approach, Diagnostic (ICD-10-PCS; principal; 2021-03-15)
DX: M84.454A Pathological fracture, pelvis, initial encounter for fracture (principal); I63.81 Other cerebral infarction due to occlusion or stenosis of small artery; E43 Unspecified severe protein-calorie malnutrition; G92 Toxic encephalopathy; J18.9 Pneumonia, unspecified organism; D68.59 Other primary thrombophilia; I10 Essential (primary) hypertension; G25.81 Restless legs syndrome; R53.81 Other malaise; E87.6 Hypokalemia; E83.42 Hypomagnesemia; R33.9 Retention of urine, unspecified; F32.9 Major depressive disorder, single episode, unspecified; F41.9 Anxiety disorder, unspecified; R91.8 Other nonspecific abnormal finding of lung field; F41.1 Generalized anxiety disorder; L27.0 Generalized skin eruption due to drugs and medicaments taken internally; R13.10 Dysphagia, unspecified; M25.552 Pain in left hip; Z20.822 Contact with and (suspected) exposure to COVID-19; I25.2 Old myocardial infarction; Z87.891 Personal history of nicotine dependence; Z68.21 Body mass index [BMI] 21.0-21.9, adult; Z86.711 Personal history of pulmonary embolism; Z86.718 Personal history of other venous thrombosis and embolism
CPT/HCPCS: 10078; 10081; 10203; 50455

== ENCOUNTER 2021-03-19 16:41 | Inpatient (IN) | payer OTHER ==
[~2021-03-19] VITALS: Ht 167.6 cm; Wt 60.1 kg
--- NOTE | ~2021-03-19 | H ---
[facility] [place] [address] HISTORY AND PHYSICAL Name: RALEIGH GAINES Room #: 504-1 ADM IN ..#: [id number] Admission: 03/19/21 Attend Phys: Juancarlos Rollins MD Discharge: Date of : 57 Report #: [id number] THIS REPORT FOR: cc: FAM - Family physician unknown FAM - Family physician unknown Juancarlos Rollins MD ~ DOC #: [id number] Juancarlos Rollins MD DATE OF SERVICE: 03/19/2021 HISTORY OF PRESENT ILLNESS: The patient is a 65-year-old female who is previously known to us on the acute inpatient rehabilitation [facility] after admission with shortness of breath and workup revealing bilateral pulmonary emboli and DVT. She was anticoagulated, noted to have significant functional deficits and left hip and leg spasm that was treated symptomatically. While on the acute inpatient rehab [facility], an evaluation of the left hip revealed a large expansile mass. Orthopedics saw her and recommended tertiary care involvement. The patient then had an acute episode of prominent right-sided weakness, expressive aphasia. Code stroke was initiated and the patient was urgently discharged off of rehabilitation on 03/11/2021. Hospital course included neurology involvement with MRI documenting left thalamic stroke, which correlate with the patient's symptoms of aphasia and right hemiplegia. She is not a TPA candidate. Oncology has been involved. CT imaging revealed a lung mass and it was thought that maybe the stroke could be related to possible hypercoagulable state, possibly in the setting of malignancy. She was noted to have a biopsy of the destructive left acetabular lesion on 03/15/2021 with the results pending. It was thought best to transfer her back to the acute rehab [facility] to maximize her functional independence to try to get her back home with the . She thus has been readmitted for acute in-hospital inpatient rehabilitation. PRIOR MEDICAL HISTORY, ALLERGIES, HOME SETTING: Please see her prior dictation. MEDICATIONS: Please see the MAR. REVIEW OF SYSTEMS: No current complaints of chest pain, shortness of breath or abdominal discomfort. PHYSICAL EXAMINATION: GENERAL: The patient was seen on 03/19/2021. She was alert, no obvious distress. HEENT: Appeared to be benign. VITAL SIGNS: Stable. NEUROLOGICAL: She does have decreased verbalization. Significant cognitive delay, some of which was premorbid. She does not know the month. She will follow basic commands. CHEST: Sounded clear to auscultation. [address] [address] HISTORY AND PHYSICAL Name: RALEIGH GAINES Room #: 504-1 ADM IN [facility]#: [id number] Admission: 03/19/21 Attend Phys: Juancarlos Rollins MD Discharge: Date of : 57 Report #: [id number] CARDIAC: Regular rate and rhythm. ABDOMEN: Bowel sounds positive, nontender. EXTREMITIES: She likes to hold that left lower extremity flexed at the hip and knee for comfort. She does have right-sided weakness. I would grade it at a 4- to 3+/5. She is to have limited weightbearing on that left lower extremity per orthopedics. ASSESSMENT: A 65-year-old white female readmitted with the following problem list: 1. 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 2. Aphasia. 3. 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 Limited weightbearing per orthopedics. 4. Bilateral pulmonary embolism and right lower extremity deep vein thrombosis 02/24. 5. Hilar mass noted on the left upper chest CT with multiple small round pulmonary nodules noted. 6. Thrombocytosis. PLAN: The patient has been admitted for acute in-hospital inpatient rehabilitation. Please see the prior history and physical and discharge summary. Please see the patient's previous and current functional status. As far as risk of complication, she has multiple significant medical comorbidities as noted above. Initial plan of care involves the interdisciplinary acute inpatient rehabilitation program. Measurable functional goals would be for the patient to become modified independent or at least maximally independent, so that she can return back to the home setting. Prognosis is reasonably good with estimated length of stay probably at least 2 weeks and likely longer. Potential barriers would include her multiple medical comorbidities and decreased functional status. Juancarlos Rollins MD DGS/[facility] By: [id number] Juancarlos Rollins MD /nt
--- NOTE | ~2021-03-19 | PLAN ---
[facility] [address] REHAB UNIT PLAN OF CARE Name: RALEIGH GAINES Room #: 504-1 ADM IN .R.#: [id number] Admission: 03/19/21 Attend Phys: Juancarlos Rollins MD Discharge: Date of : 57 Report #: [id number] THIS REPORT FOR: cc: FAM - Family physician unknown FAM - Family physician unknown Juancarlos Rollins MD ~ DOC #: [id number] Juancarlos Rollins MD DATE OF SERVICE: 03/20/2021 PROGRESS NOTE AND OVERALL PLAN OF CARE HISTORY OF PRESENT ILLNESS: The patient was seen back in followup. She was in no distress. Afebrile, vital signs are stable. She likes to hold her left hip in a flexed position in bed. No focal calf swelling. She is pleasant, has minimal verbalizations, but will follow basic 1-step commands. No obvious focal neurologic changes. I had a discussion with occupational therapy and clarification was made regarding the patient's weightbearing status. I have her at nonweightbearing to toe touch weightbearing on the left lower extremity. Our main focus is working on transfers. She is currently max assist, sit to stand. She has been max assist bed to wheelchair. In occupational therapy, mod neurology physician assistant is needed for lower body dressing with supervision for upper body dressing. Speech therapy is working with her as well and she does have severe cognition and memory deficits along with moderate to severe expressive deficits. She is on a mechanical soft, thin liquid diet. ASSESSMENT: 1. 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 2. Aphagia. 3. Left acetabular destructive lesion on 03/08/2021 status post biopsy. Limited weightbearing per orthopedics. I have clarified with the therapist that, that is to be nonweightbearing to toe touch weightbearing. 4. Bilateral pulmonary embolism with right lower extremity deep venous thrombosis 02/24/2021. 5. Hilar mass noted on left upper chest CT with multiple small, round, pulmonary nodules noted. 6. Thrombocytosis. PLAN: The overall plan of care is based on the pre-admission screen and information garnered from therapy assessments. 1. Estimated length of stay is probably at least 2 weeks. 2. Medical prognosis reasonably good from a rehabilitation perspective. 3. Anticipated interventions includes the interdisciplinary acute inpatient rehabilitation program. 4. Anticipated functional outcomes would be for the patient to become maximally independent with basic transfers and mobility issues as well as basic dressing [address] [address] REHAB UNIT PLAN OF CARE Name: RALEIGH GAINES Robert Room #: 504-1 ADM IN [facility].#: [id number] Admission: 03/19/21 Attend Phys: Juancarlos Rollins MD Discharge: Date of : 57 Report #: [id number] issues, so that her would be able to assist her back in the home setting. 5. Discharge destination would be back home with . Need to work on training. Oncology is assisting regarding further recommendations for her multiple tumors. 6. Expected therapy by discipline includes PT, OT and speech 1 hour per day each, 5 days a week throughout the duration of the acute inpatient rehabilitation stay. ADDENDUM: The patient's prognosis for significant practical improvement within a reasonable period of time appears good. Given the patient's complex medical condition and risk of further medical complication, rehabilitation services could not be safely provided at the lower level of care such as a long-term facility. MD JACI Hernandez/[facility] By: [id number] Juancarlos Rollins MD /nt
[~2021-03-19 16:41] MED LIST changes: +LEVOFLOXACIN500 MG PO
[2021-03-19 20:05] VITALS: BP 140/76
--- NOTE | 2021-03-19 22:43 | NUR ---
PT IS 65 YEAR-OLD FEMALE ADMITTED WITH THALMIC CVA TO THE FLOOR FROM 210.ARRIVED TO UNIT VIA BED ACCOMPANIED BY STAFF.PT IS ALERT TO SELF WITH EXPRESSIVE APHASIA.DOES WELL WITH SIMPLIFIED YES/NO QUESTION.VSS.DRY MOUTH NOTED AND ORAL INTAKE ENCOURAGED.ON RA W/O RES DISTRESS.RRR. LEFT SIDED WEAKNESS NOTED.DENIES PAIN BUT MOANS AND GRIMACES WITH LEFT HIP MOVEMENT/ACTIVITY.LIMITED WEIGHT BEARING TO LLE PER ORTHO.MERIDA DD TO YELLOW URINE.PT TO REQUIRE ASSISTANCE WITH ALL ADLS.ORIENTED TO RM ,CALL LIGHT SYSYTEM ADN UNIT ACTIVITIES,VOICED UNDERSTANDING.ASSESSMENT COMPLETED DOCUMENTED.POC IS TO PARTICIPATE IN REHAB WHILE HERE.WILL CONT TO MONITOR PER POC.
[2021-03-20 05:31] LABS: HEMATOCRIT 30.3 % (37.0-47.0); MCH 25.8 pg (26.0-34.0); MCV 78.3 fL (80.0-100.0); RBC 3.86 mil/uL (4.20-5.00); RDW 15.4 % (10.5-14.5); WBC 9.9 thou/uL (4.0-11.0)
[2021-03-20 05:38] LABS: CALCIUM 9.4 mg/dL (8.5-10.1); CREATININE 0.8 mg/dL (0.6-1.0); POTASSIUM 3.9 mmol/L (3.5-5.1)
[2021-03-20 07:32] VITALS: BP 163/77
[2021-03-20 09:00] VITALS: BP 163/77
--- NOTE | 2021-03-20 15:07 | NUR ---
Chart review. She back to acute rehab. prior to hospital live home in apartment with her spouse, have elevator. Independent prior to hospital. manage own medication. Has walker. No home o2. goes to [facility] for pcp with dr cho. spouse kevin # [phone]. She was in hospital and dc up to acute rehab, then had code stroke called, and moved back to acute care. Will cont following as needed for dc needs.
[2021-03-20 19:29] VITALS: BP 113/58
--- NOTE | 2021-03-21 01:22 | NUR ---
PT ASSESSMENT COMPLETED AND VSS. MEDS GIVEN ORDERED AND WELL TOLERATED. FALL PRECAUTIONS IN PLACE. ASST WITH REPOSITION FOR COMFORT. MERIDA DRAINING YELLOW URINE. PT DENIES NEEDS. SLEEPING WELL. WILL CONTINUE TO MONITOR FREQUENTLY.
[2021-03-21 07:58] VITALS: BP 144/81
--- NOTE | 2021-03-21 09:15 | NUR ---
PT SITTING ON SIDE OF BED GETTING DRESSED WITH OT. PT NEEDED ASSIST WITH STANDING DUE TO NWB TO LEFT LEG, ASSISTED PULLING UP PANTS. PT HAS MERIDA TO DD. PT DIDN'T SHOW ANY SIGNS OF PAIN WHEN SITTING ON SIDE OF BED. PT SMILE IS SYMETRIC AND EYE BROWS, PT HEADER SET UP OPERATOR FEEL STRONG BILAT, PT FEET WAS SENSATIVE TO TOUCH, ABLE TO PULL FEET AWAY FROM TOUCH.
--- NOTE | 2021-03-21 09:16 | NUR ---
ADM TYLENOL 650MG PO FOR PAIN TO LEFT LEG OF 5 ON 1-10 SCALE.
--- NOTE | 2021-03-21 13:49 | NUR ---
referral sent to [facility] to see if have ltc female bed.
--- NOTE | 2021-03-21 13:57 | NUR ---
cm notified by [employer], pt and spouse looking into LTC, referral faxed to [facility] per spouse request.
--- NOTE | 2021-03-21 16:00 | NUR ---
D/C MERIDA AT THIS TIME, PT HAD 250ML OF URINE IN BAG.
[2021-03-21 19:17] VITALS: BP 139/78
--- NOTE | 2021-03-21 20:00 | NUR ---
PT HAS NOT VOIDED AT THIS TIME. PT SEEMS MORE COMFORTABLE WITHOUT PAIN. PT SMILES WITH STAFF WHEN SPOKE TO.
--- NOTE | 2021-03-22 01:59 | NUR ---
PT ASSESSMENT COMPLETED AND VSS. MEDS GIVEN ORDERED AND WELL TOLERATED. FALL PRECAUTIONS IN PLACE. MUSCLE RELAXER AND TYLENOL GIVEN FOR LEFT HIP PAIN. HELPFUL. PT INC OF SMALL AMOUNT OF URINE EARLY DURING THE SHIFT. BLADDER SCAN ONLY SHOWED 275 IN. ENC PT TO DRINK MORE. PT DRANK 240 RIGHT AWAY AND IS WORKING ON ANOTHER 240 NOW. WILL CONTINUE TO MONITOR PT.
[2021-03-22 07:14] VITALS: BP 131/74
--- NOTE | 2021-03-22 09:00 | NUR ---
PT ALERT TO SELF. PT SMILES AT TIMES WITH STAFF. PT HAS EQUAL REAL ESTATE DEVELOPER TO HANDS. PT ABLE TO TAKE MEDS WITH WATER. PT UP TO W/C AND IN DINNING ROOM FOR BREAKFAST. PT TOOK MEDS WHOLE AND NEEDED ENCOURAGEMENT TO TAKE ONE AT A TIME INSTEAD OF FULL CUP. PT RECIEVED TYLENOL 325MG 2 TABS PO FOR PAIN TO LEFT LEG. KOKI MCGUIRE TOLD PT ABOUT TRANSFERING TO LTC AND ABOUT NOT TX FOR HER CANCER, JUST PALATIVE RADIATION TO HELP DECREASE THE CANCER FOR PAIN CONTROL. PT DIDN'T SHOW ANY EMOTIONS AT THIS TIME. UNKNOWN ON LAST BM, GAVE PT MIRALAX THIS AM.
--- NOTE | 2021-03-22 09:52 | NUR ---
Cm spoke with jovi at [facility], no ltc beds open. cm spoke with spouse kevin about new facility for ltc. Any where that is close to [place]. per spouse. Education on [facility] and [facility]. Referral sent out. Will cont following as needed for dc needs.
--- NOTE | 2021-03-22 15:30 | NUR ---
PT WORKED WITH THERAPY AND WAS INCON. OF SOFT BROWN STOOL. APPLIED BARRIER CREAM TO BUTTOCKS.
--- NOTE | 2021-03-22 16:22 | NUR ---
PT GOT UP AND WAS TO W/C AND TRANSFERED TO BATHROOM TO VOID AND HAD ANOTHER SMALL BM. PT STATED SHE WAS HAVING PAIN TO LEFT LEG WITH TRANSFERS.
--- NOTE | 2021-03-22 17:43 | NUR ---
ADM TYLENOL 325MG 2 TABS PO FOR PAIN TO LEFT LEG, PT DRAWING UP LEFT LEG IN A COMFORTABLE POSITION.
[2021-03-22 19:10] VITALS: BP 120/38
--- NOTE | 2021-03-23 02:11 | NUR ---
ASSUMED CARE APPROX 1900 EVENING 03/22. PT LYING IN BED WITH HEAD OF BED ELEVATED DOZING OFF AND ON. PT AWOKE TO TAKE HS MEDS, DENIED COMPLAINTS. PT APPEARS TO BE SLEEPING SOUNDLY. BED ALARM ON AND CALL LIGHT IN REACH. WILL CONTINUE TO MONITOR.
[2021-03-23 08:15] VITALS: BP 130/52
[2021-03-23 20:15] VITALS: BP 122/59
--- NOTE | 2021-03-24 02:23 | NUR ---
assumed care approx 1900 evening 03/23. pt assisted with changing into gown at hs and voided on toilet. pt took hs meds with water tolerating well. pt appears to be sleeping soundly. bed alarm on and call light in reach. will continue to monitor.
[2021-03-24 07:15] VITALS: BP 133/72
[2021-03-24 08:15] VITALS: BP 133/72
--- NOTE | 2021-03-24 14:31 | NUR ---
ASSUMED C/O PT AT 0700. PT RESTING IN BED. PT IS CALL LIGHT APPROPRIATE. WORKS WITH THERAPIES. TOLERATING DIET. WILL CONTINUE TO MONITOR.
[2021-03-24 19:09] VITALS: BP 106/55
--- NOTE | 2021-03-25 04:14 | NUR ---
TYLENOL GIVEN AT BEDTIME TO HELP WITH PAIN. PT HAS BEEN SLEEPING MOST OF THE NIGHT. RESPIRATIONS EVEN AND UNLABORED. VSS. AFEBRILE. SHE CONTINUES TO HAVE EXPRESSIVE APHASIA BUT IS ABLE TO CLEARLY STATE SOME WORDS TO COMMUNICATE. PT APPROPRIATELY NODS HEAD YES/NO TO SIMPLE QUESTIONS. NO SIGNIFICANT EVENTS DURING THE NIGHT. PROGRESSING SLOWLY TOWARD POC GOALS. WILL CONTINUE TO MONITOR FURTHER.
[2021-03-25 08:47] VITALS: BP 132/70
--- NOTE | 2021-03-25 09:00 | NUR ---
PT WORKING WITH THERAPY AT THIS TIME AND NEEDING SOME TYLENOL FOR PAIN TO LEFT HIP. PT SITTING OUT IN DINING ROOM. PT UNABLE TO STATE PAIN LEVEL. PT ALSO REFUSED STOOL SOFTNERS THIS AM. LAST BM WAS 03/23 AND WAS INCON. PT LUNGS CLEAR.
--- NOTE | 2021-03-25 09:04 | NUR ---
ADM TYLENOL 325MG 2 TABS FOR PAIN OF 7 ON 1-10 SCALE.
--- NOTE | 2021-03-25 17:31 | NUR ---
CHECKED IN ON PT AND SHE WAS FEEDING SELF. PT REFUSED TO HAVE ANY TYLENOL AT THIS TIME. GAVE PT A WATER PITCHER WITH FRESH WATER.
[2021-03-25 19:17] VITALS: BP 117/54
--- NOTE | 2021-03-26 02:17 | NUR ---
LAST BM ON 03/23, MIRALAX ENCOURAGED AND DECLINED, TOOK COLACE AND STATES SHE MIGHT TAKE MIRALAX THIS MORNING. UP TO TOILET FOR VOID WITH TRANSFER TO AND FROM WHEELCHAIR. TURNING SELF SIDE TO SIDE IN BED, APPRECIATES REQUIP, DOES NOT NEED TYLENOL FOR PAIN AT THIS POINT.
[2021-03-26 05:49] LABS: ABSOLUTE NEUTROPHILS 7.1 thou/uL (1.4-8.2); BASOPHILS 0.9 % (0.0-2.0); CALCIUM 9.5 mg/dL (8.5-10.1); CREATININE 0.8 mg/dL (0.6-1.0); EOSINOPHILS 5.6 % (0.0-3.0); HEMATOCRIT 28.8 % (37.0-47.0); HEMOGLOBIN 9.7 gm/dL (12.0-15.0); LYMPHOCYTES 16.5 % (24.0-44.0); MCH 26.7 pg (26.0-34.0); MCHC 33.8 g/dL (28.0-37.0); MONOCYTES 8.9 % (1.0-8.0); PLATELET COUNT 504 thou/uL (150-400); POLYS 68.1 % (36.0-66.0); POTASSIUM 3.9 mmol/L (3.5-5.1); RBC 3.64 mil/uL (4.20-5.00); RDW 16.6 % (10.5-14.5); WBC 10.5 thou/uL (4.0-11.0)
--- NOTE | 2021-03-26 07:22 | NUR ---
Up dated clinical sent to [facility] and [facility] for LTC referral.
[2021-03-26 08:00] VITALS: BP 115/69
[2021-03-26 08:10] VITALS: BP 115/69
--- NOTE | 2021-03-26 19:12 | HC ---
[facility] [place] [address] CONSULTATION Name: RALEIGH GAINES Room #: 504-1 ADM IN [facility].#: [id number] Admission: 03/19/21 Attend Phys: Juancarlos Rollins MD Discharge: Date of : 57 Report #: [id number] THIS REPORT FOR: cc: FAM - Family physician unknown FAM - Family physician unknown Paulo Felix PhD ~ DATE OF SERVICE: 03/24/2021 NEUROBEHAVIORAL STATUS EXAM ATTENDING PHYSICIAN: Juancarlos Rollins M.D. BUILDING SPECIALIST: Paulo Felix, PhD CLINICAL PRESENTATION: The patient is a 65-year-old female admitted to the rehabilitation unit for a comprehensive inpatient rehabilitation program. She carries an admitting diagnosis of thalamic CVA on 03/11/2021, aphasia, left acetabular destructive lesion on 03/08, status post biopsy on 03/15 with limited weightbearing, bilateral pulmonary embolism with right lower extremity deep venous thrombosis, a hilar mass noted in the left upper chest. CT scan, multiple small round pulmonary nodules were noted with thrombocytosis. A complete description of her medical condition and history can be found in her medical record. Neuropsychological consultation was requested to provide assistance in the assessment of cognitive and emotional status and provide recommendations and services. Prior to this most recent admission, the patient was living with her in their home. 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 She has one child from whom she is estranged. Plans are for her to move into assisted living following her rehabilitation program. Her is anxious regarding sharing plans for her discharge. I discussed strategies with him during the assessment for communicating issues regarding placement. TECHNIQUES UTILIZED: Clinical interview, review of medical records, staff consultation and behavioral observation, mini mental status exam 2 standard version and clock drawing. EXAMINATION FINDINGS: The patient was alert and cooperative with the assessment. She was unable to remember the reason for her hospitalization and current medical condition that is requiring treatment. Her appetite is reported as inconsistent. Her indicates that she is not showing much interest in activities such as using her cell phone as she had in the past. Decreased verbal fluency is noted. The patient is lacking insight into symptoms of cognitive and emotional status. She does not report feelings of anxiety, depression, or sleep disturbance. [address] [address] CONSULTATION Name: RALEIGH GAINES Robert Room #: 504-1 [facility] IN [facility].#: [id number] Admission: 03/19/21 Attend Phys: Juancarlos Rollins MD Discharge: Date of : 57 Report #: [id number] Her performance on the MMSE 2 brief version was extremely low with a raw score of 7/16. She was 3/3 for initial registration, 1/5 for orientation to time, 3/[address] and 0/3 for immediate recall of 3 items after a brief time delay and distraction. Her performance was extremely low on the MMSE 2 standard version with a raw score of 14/30. She was 0/5 for serial sevens, 2/2 for naming, 1/1 for repetition, 3/3 for auditory comprehension. She could read and follow a single command. The patient was able to write a sentence. She was unable to copy a simple geometric design or draw a clock or set the hands at a designated time. The patient is presenting with severe deficits in cognitive functioning. Impairment is noted with immediate recall, visual spatial construction, attention/concentration and executive functioning. DIAGNOSTIC IMPRESSION: Neurocognitive disorder -- unspecified, extent to be determined, likely in the moderate to severe range. RECOMMENDATIONS: The patient will require assistance in the management of medication finances and nutrition. Verbal praise and compliments about her participation in therapies and encouragment to engage in activities of former interest. Emphasizing strengths and personal resources will also help with participation in therapies. Thank you very much for allowing me to provide the consultation on this patient. <ELECTRONICALLY SIGNED> By: Paulo Felix, PhD 03/26/21 1912 1723 0032 Paulo Felix, PhD /nt
[2021-03-26 19:22] VITALS: BP 114/53
--- NOTE | 2021-03-26 23:23 | NUR ---
PT ALERT AND ORIENTED X 2. EXPRESSIVE APHASIA NOTED. PT DENIES PAIN OR DISCOMFORT. REFUSED MIRALAX AT HS. DID TAKE COLACE. PT TOOK HS MEDS WITH WATER WITHOUT DIFFICULTY. PT REPOSITIONS SELF IN BED. BED ALARM ON FOR SAFETY. PT APPEARS TO BE SLEEPING ON HOURLY ROUNDS.
[2021-03-27 07:15] VITALS: BP 137/78
--- NOTE | 2021-03-27 15:28 | NUR ---
All parties anticipating dc to assistant terminal manager care at [facility] tomorrow. They are arranging a w/c van ride and have touched base with pt's spouse today. He has brought in both of their covid vaccine cards and a copy is on the chart. We will send a copy with her chart copy tomorrow along with the dc orders. 124c completed as well and faxed to admissions. Will ask for a chart copy today and confirm dc time with all parties in the am.
--- NOTE | 2021-03-27 19:47 | NUR ---
ASSUNED C/O PT AT 0700. PT A&O TO SELF AND PLACE. PT AB;E TO SPEAK MORE SENTENCES AND EXPRESSES SELF BETTER. CONTINUE WITH POC.
[2021-03-27 20:00] VITALS: BP 104/57
--- NOTE | 2021-03-28 04:33 | NUR ---
TURNING SELF IN BED, AFTER DULCOLAX SUPPOSITORY PATIENT HAD LARGE BM ON BSC. EXPRESSIVE APHASIA CONTINUES, DENIES PAIN.
[2021-03-28 07:45] VITALS: BP 136/78
[2021-03-28] MEDS ORDERED: LIPITOR 20 MG T20 M1 PO (08:23)
[2021-03-28] MEDS ORDERED: BISACODYL10 MG RECTAL (08:23)
[2021-03-28 08:41] VITALS: BP 136/78
--- NOTE | 2021-03-28 08:41 | NUR ---
PT LYING IN BED THIS AM FOR BREAKFAST. PT DIDN'T HAVE ANY COMPLAINTS OF PAIN TO LEFT HIP. PT ABLE TO SIT ON THE SIDE OF BED WITH TOUCH ASSIST TO EAT. PT TOOK MEDS ORAL WITHOUT ANY ISSUES. PT LUNGS CLEAR. PT HAS WEAKNESS TO HANDS BILATERAL. PT HAS BRIEF ON FOR INCON. PT HAD LARGE BM LAST NIGHT.
--- NOTE | 2021-03-28 11:29 | NUR ---
GAVE REPORT TO MAME HALE AT [facility]. PT IS D/C TODAY AROUND 1:30-1300.
--- NOTE | 2021-03-28 11:31 | NUR ---
SW informed that pt is medically stable to transition back to LTC at [facility]. LTC liasion set transport for [id number]. SW faxed covid vaccine care, level 1 form, D/C order, final med list, and additional PT/OT notes. ALYSSA provided 5N nurse manager social work w/ number for report at [facility] [phone]. No further needs identified at this time.
--- NOTE | 2021-03-28 13:34 | NUR ---
PT LEFT VIA W/C TO [facility]. ACCOMPANIED WITH PT.
== END 2021-03-28 13:40 | DRG 56 ==
PROVIDERS: Nurse Practitioner; Nurse Practitioner Family; ADMIT Physical Medicine & Rehabilitation; ATTEND Physical Medicine & Rehabilitation
DX: I69.351 Hemiplegia and hemiparesis following cerebral infarction affecting right dominant side (principal); I63.9 Cerebral infarction, unspecified; G92 Toxic encephalopathy; J18.9 Pneumonia, unspecified organism; C34.90 Malignant neoplasm of unspecified part of unspecified bronchus or lung; C79.51 Secondary malignant neoplasm of bone; E44.0 Moderate protein-calorie malnutrition; M84.459A Pathological fracture, hip, unspecified, initial encounter for fracture; R53.81 Other malaise; D47.3 Essential (hemorrhagic) thrombocythemia; Z20.822 Contact with and (suspected) exposure to COVID-19; R91.8 Other nonspecific abnormal finding of lung field; M89.8X8 Other specified disorders of bone, other site; R41.9 Unspecified symptoms and signs involving cognitive functions and awareness; F32.9 Major depressive disorder, single episode, unspecified; I10 Essential (primary) hypertension; R26.89 Other abnormalities of gait and mobility; R13.10 Dysphagia, unspecified; G25.81 Restless legs syndrome; F41.1 Generalized anxiety disorder; R33.9 Retention of urine, unspecified; I69.320 Aphasia following cerebral infarction; Z79.01 Long term (current) use of anticoagulants; Z88.8 Allergy status to other drugs, medicaments and biological substances; Z88.1 Allergy status to other antibiotic agents; Z86.711 Personal history of pulmonary embolism; Z86.718 Personal history of other venous thrombosis and embolism; I25.2 Old myocardial infarction; Z68.21 Body mass index [BMI] 21.0-21.9, adult
CPT/HCPCS: 10112